=== PATIENT | female | born 1975 | race Caucasian/White ===

== ENCOUNTER 2020-06-20 23:10 | Emergency (ER) | payer SELFPAY ==
[~2020-06-20] VITALS: Ht 172.7 cm; Wt 101.9 kg
[2020-06-20] MEDS ORDERED: FAMOTIDINE 20 MG/2 ML VIAL IVP ONE (23:30)
[2020-06-20] MEDS ORDERED: IV NORMAL SALINE 1,000ML 1,000 ML IV ONE (23:30)
[2020-06-20] MEDS ORDERED: ONDANSETRON PF 4 MG/2 ML VIAL. IVP ONE (23:30)
[2020-06-20] MEDS ORDERED: ONDANSETRON PF 4 MG/2 ML VIAL. ONE (23:47)
[2020-06-20] MEDS ORDERED: FAMOTIDINE 20 MG/2 ML VIAL ONE (23:48)
--- NOTE | 2020-06-21 00:05 | RAD ---
INDICATION: Reason: abdominal pain, hernia / Spl. Instructions: / History: COMPARISON: None. TECHNIQUE: Axial CT images obtained through the abdomen and pelvis without contrast Limited assessment of solid organ structures and vasculature secondary to lack of intravenous contrast.. One or more of the following individualized dose reduction techniques were utilized for this examination: 1. Automated exposure control; 2. Adjustment of the mA and/or kV according to patient size; 3. Use of iterative reconstruction technique. FINDINGS: Mixed regions of lucency and groundglass opacity at lung bases. Abdominal aorta is nonaneurysmal. Postcholecystectomy changes. No intrahepatic bile duct dilation. Laxity of the anterior abdominal wall which could be postoperative in nature. Inferior vena cava filter. No peripancreatic fluid collection. Spleen unremarkable. Lobulated appearance of the bilateral kidneys with multiple nonobstructive stones. No hydronephrosis. Urinary bladder has minimal urine within the time of exam. Mild prominence of the wall. Appendix is not well seen. No dilated loops of bowel to suggest obstruction. Degenerative changes of the spine with some disc protrusions. IMPRESSION: * Multiple nonobstructive bilateral renal stones without hydronephrosis. * Urinary bladder is not very distended with some prominence of the wall. Likely secondary to lack of distention unless the patient is having symptoms of cystitis. * Mixed lucent and groundglass opacities at the lung bases which can be seen with air trapping and small airway inflammation. Electronically signed by: Hardeep Purdy MD (06/21/2020 12:03 AM) [id number]
--- NOTE | 2020-06-21 00:11 | PHYS DOC ---
Past History Past Medical History: Anxiety, Bipolar, CHF, DVT, GERD, Other Additional Past Medical Histor: PE, LUPUS, gastric ulcer Past Surgical History: Appendectomy, Cholecystectomy, , Hysterectomy, Tonsillectomy, Other Additional Past Surgical Histo: L KNEE, R HIP, gastric perforation repair Smoking: Cigarettes Alcohol Use: Rarely Drug Use: None General Adult EDM: Chief Complaint: ABDOMINAL PAIN HPI: HPI: 44-year-old female presents with report of abdominal pain at site of her known hernia which has become worse over the past several days. Patient with history of chronic pain for which she has been seen multiple times at [facility]. Patient does have a history of perforated gastric ulcer which required repair in March 2020. Patient reports she has had problems with abdominal wall hernia since. Patient was recently seen at [facility] a few days ago for similar without acute finding per [facility] review. Patient reportedly became angry when narcotic pain medication was not provided and left AGAINST MEDICAL ADVICE. Patient denies known sick contacts. Denies fever chills. Denies nausea or vomiting. Review of Systems: Review of Systems: Constitutional: Denies fever or chills Eyes: Denies redness or eye pain HENT: Denies nasal congestion or sore throat Respiratory: Denies cough or shortness of breath Cardiovascular: Denies chest pain or palpitations GI: Reports abdominal wall pain at site of known hernia : Denies dysuria or hematuria Musculoskeletal: Denies back pain or joint pain Integument: Denies rash or skin lesions Neurologic: Denies headache, focal weakness or sensory changes Complete systems were reviewed and found to be within normal limits, except as documented in this note. Current Medications: Current Meds: Current Medications Medications (Trade) Dose Ordered Sig/Jane Start Time Stop Time Status Last Admin Dose Admin Famotidine (Pepcid Vial) 20 mg 1X ONCE 06/20/20 23:30 06/20/20 23:31 UNV Ondansetron HCl (Zofran) 4 mg 1X ONCE 06/20/20 23:30 06/20/20 23:31 UNV Sodium Chloride 1,000 ml @ 1,000 mls/hr 1X ONCE 06/20/20 23:30 06/21/20 00:29 UNV Physical Exam: PE: Constitutional: Well developed, well nourished, uncomfortable, non-toxic appearance HENT: Normocephalic, atraumatic Eyes: Conjunctiva normal, no discharge Neck: Normal range of motion, supple Lungs & Thorax: No respiratory distress, equal chest rise and fall Abdomen: Soft, epigastric tenderness at site of a reducible abdominal wall herniation, no guarding/rebound tenderness Skin: Warm, dry, no erythema, no rash Extremities: No tenderness, ROM intact, no edema Neurologic: Alert and oriented X 3, no focal deficits noted Psychologic: Affect normal, judgment normal Current Patient Data: Vital Signs: Vital Signs Date Time Temp Pulse Resp B/P (MAP) Pulse Ox O2 Delivery O2 Flow Rate FiO2 06/20/20 23:24 97.8 104 18 137/118 (124) 98 Room Air EKG: EKG: [] Radiology/Procedures: Radiology/Procedures: PROCEDURE: CT ABDOMEN PELVIS WO CONTRAST INDICATION: Reason: abdominal pain, hernia / Spl. Instructions: / History: COMPARISON: None. TECHNIQUE: Axial CT images obtained through the abdomen and pelvis without contrast Limited assessment of solid organ structures and vasculature secondary to lack of intravenous contrast.. One or more of the following individualized dose reduction techniques were utilized for this examination: 1. Automated exposure control; 2. Adjustment of the mA and/or kV according to patient size; 3. Use of iterative reconstruction technique. FINDINGS: Mixed regions of lucency and groundglass opacity at lung bases. Abdominal aorta is nonaneurysmal. Postcholecystectomy changes. No intrahepatic bile duct dilation. Laxity of the anterior abdominal wall which could be postoperative in nature. Inferior vena cava filter. No peripancreatic fluid collection. Spleen unremarkable. Lobulated appearance of the bilateral kidneys with multiple nonobstructive stones. No hydronephrosis. Urinary bladder has minimal urine within the time of exam. Mild prominence of the wall. Appendix is not well seen. No dilated loops of bowel to suggest obstruction. Degenerative changes of the spine with some disc protrusions. IMPRESSION: * Multiple nonobstructive bilateral renal stones without hydronephrosis. * Urinary bladder is not very distended with some prominence of the wall. Likely secondary to lack of distention unless the patient is having symptoms of cystitis. * Mixed lucent and groundglass opacities at the lung bases which can be seen with air trapping and small airway inflammation. Electronically signed by: Hardeep Purdy MD (06/21/2020 12:03 AM) [id number] Course & Med Decision Making: Course & Med Decision Making Pertinent Labs and Imaging studies reviewed. (See chart for details) Patient with known chronic abdominal discomfort presents with abdominal wall pain at site of known herniation. Patient recently seen at [facility] with acute abdominal series and laboratory evaluation which was without acute process. Patient reports pain is worse than normal. Pain addressed. Labs obtained and posted to chart. CT abdomen/pelvis without finding of acute process. [facility] reviewed. Last Rx was [place] 5/325mg x 15 tabs from 06/13/20. Patient stable for discharge with outpatient follow-up with PCP/general surgery/pain management. Pain management referral provided. Discussed findings and plan with patient, who acknowledges understanding and agreement. Gideon Disclaimer: Draglinh Disclaimer: This electronic medical record was generated, in whole or in part, using a voice recognition dictation system. Departure Departure: Impression: Primary Impression: Chronic abdominal pain Additional Impression: Abdominal wall hernia Disposition: HOME/RESIDENCE PRIOR TO ADM Condition: STABLE Referrals: PCP,UNKNOWN (PCP) LOLLY VÁSQUEZ MD Patient Instructions: Abdominal Pain (Nonspecific), Chronic Pain, Hernia, [id number] Additional Instructions: Call Brian Cronin M.D (pain management) for further evaluation and treatment.. [address], [address] [place], [place] [address] Scripts Hydrocodone Bit/Acetaminophen (NORCO 5-325 TABLET) 1 Each Tablet 0.5-1 TAB PO Q6HRS PRN for PAIN, #6 TAB Prov: SIENNA WILKERSON DO 06/21/20 Justification of Admission: Justification of Admission: Justification of Admission Dx: N/A SIENNA WILKERSON DO Jun 21, 2020 00:11
[2020-06-21] MEDS ORDERED: MORPHINE SULFATE 4 MG/ML DISP.SYRIN. IV ONE (00:15)
[2020-06-21] MEDS ORDERED: MORPHINE SULFATE 4 MG/ML DISP.SYRIN. ONE (00:40)
[2020-06-21 01:04] LABS: BASO % 0 % (0-3); EOS # 0.5 x10^3/uL (0.0-0.7); EOS % 5 % (0-3); HEMATOCRIT 36.5 % (36.0-47.0); HEMOGLOBIN 12.1 g/dL (12.0-15.5); LYMPH # 3.3 x10^3/uL (1.0-4.8); LYMPH % 30 % (24-48); MEAN CORPUSCULAR HEMOGLOBIN 31 pg (25-35); MEAN CORPUSCULAR HGB CONC 33 g/dL (31-37); MEAN CORPUSCULAR VOLUME 92 fL (79-100); MONO # 0.7 x10^3/uL (0.0-1.1); MONO % 6 % (0-9); NEUT # 6.4 x10^3uL (1.8-7.7); NEUT % 59 % (31-73); PLATELET COUNT 568 x10^3/uL (140-400); RED BLOOD COUNT 3.97 x10^6/uL (3.50-5.40); RED CELL DISTRIBUTION WIDTH 16.8 % (11.5-14.5)
[2020-06-21 01:15] LABS: CALCIUM 9.5 mg/dL (8.5-10.1); GFR 60.2; POTASSIUM 3.8 mmol/L (3.5-5.1)
[2020-06-21 01:16] LABS: BACTERIA,URINE 0 /HPF (0-FEW); BILIRUBIN,URINE NEG (NEG); CLARITY,URINE CLEAR; COLOR,URINE YELLOW; GLUCOSE,URINE NEG (NEG); NITRITE,URINE NEG (NEG); RBC,URINE 0 /HPF (0-2); SQUAMOUS EPITHELIAL CELL,UR FEW /LPF; UROBILINOGEN,URINE 0.2 mg/dL (0.2 mg/dL)
[2020-06-21 01:21] LABS: ALBUMIN 3.7 g/dL (3.4-5.0); ALBUMIN/GLOBULIN RATIO 0.9 (1.0-1.7); MAGNESIUM 2.1 mg/dL (1.8-2.4); TOTAL BILIRUBIN 0.2 mg/dL (0.2-1.0)
[2020-06-21] MEDS ORDERED: HYDR-3165 PO (01:44)
[2020-06-21 02:00] VITALS: BP 101/70
== END 2020-06-21 02:00 | disposition home or self-care (01) ==
LOC: ER 23:10
DX: K43.9 Ventral hernia without obstruction or gangrene (principal); G89.29 Other chronic pain; R10.13 Epigastric pain; K21.9 Gastro-esophageal reflux disease without esophagitis; I50.9 Heart failure, unspecified; F17.210 Nicotine dependence, cigarettes, uncomplicated; Z86.718 Personal history of other venous thrombosis and embolism; Z90.49 Acquired absence of other specified parts of digestive tract; Z90.89 Acquired absence of other organs; Z98.890 Other specified postprocedural states; Z90.710 Acquired absence of both cervix and uterus
CPT/HCPCS: 36415; 74176; 80053; 81001; 83605; 83690; 83735; 85025; 85610; 85730; 96361; 96374; 96375; 99284; J2270; J2405; J3490; J7030; 99285-25

== ENCOUNTER 2020-07-03 17:20 | Emergency (ER) | payer SELFPAY ==
[~2020-07-03] VITALS: Ht 172.7 cm; Wt 103.0 kg
[~2020-07-03 17:20] MED LIST: HYDR-3165 PO
[2020-07-03] MEDS ORDERED: ONDANSETRON PF 4 MG/2 ML VIAL. IVP ONE (17:45)
[2020-07-03] MEDS ORDERED: MORPHINE SULFATE 4 MG/ML DISP.SYRIN. IV ONE ×2 (17:45→18:45)
[2020-07-03] MEDS ORDERED: IV NORMAL SALINE 1,000ML 1,000 ML IV ONE (17:45)
[2020-07-03] MEDS ORDERED: ONDANSETRON PF 4 MG/2 ML VIAL. ONE (17:51)
[2020-07-03] MEDS ORDERED: MORPHINE SULFATE 4 MG/ML DISP.SYRIN. ONE (17:52)
[2020-07-03 18:10] LABS: BASO # 0.1 x10^3/uL (0.0-0.2); BASO % 1 % (0-3); EOS # 0.4 x10^3/uL (0.0-0.7); EOS % 4 % (0-3); HEMATOCRIT 37.2 % (36.0-47.0); HEMOGLOBIN 12.7 g/dL (12.0-15.5); LYMPH # 3.1 x10^3/uL (1.0-4.8); LYMPH % 35 % (24-48); MEAN CORPUSCULAR HEMOGLOBIN 31 pg (25-35); MEAN CORPUSCULAR HGB CONC 34 g/dL (31-37); MEAN CORPUSCULAR VOLUME 91 fL (79-100); MONO # 0.7 x10^3/uL (0.0-1.1); MONO % 8 % (0-9); NEUT # 4.6 x10^3uL (1.8-7.7); NEUT % 52 % (31-73); PLATELET COUNT 551 x10^3/uL (140-400); RED BLOOD COUNT 4.11 x10^6/uL (3.50-5.40); RED CELL DISTRIBUTION WIDTH 15.6 % (11.5-14.5); WHITE BLOOD COUNT 8.9 x10^3/uL (4.0-11.0)
[2020-07-03 18:16] LABS: BILIRUBIN,URINE NEG (NEG); CLARITY,URINE HAZY; COLOR,URINE YELLOW; GLUCOSE,URINE NEG (NEG)
[2020-07-03 18:17] LABS: BACTERIA,URINE FEW /HPF (0-FEW); NITRITE,URINE NEG (NEG); RBC,URINE 0 /HPF (0-2); UROBILINOGEN,URINE 0.2 mg/dL (0.2 mg/dL)
--- NOTE | 2020-07-03 18:17 | RAD ---
CT Abdomen and Pelvis without contrast History: Abdominal pain, hernia Technique: Noncontrast CT imaging was performed of the abdomen and pelvis. Multiplanar images are reviewed. Exposure: One or more of the following individualized dose reduction techniques were utilized for this examination: 1. Automated exposure control 2. Adjustment of the mA and/or kV according to patient size 3. Use of iterative reconstruction technique. Comparison: June 20, 2020 Findings: There are again about 5 small left renal calculi with the largest about 2 to 3 mm. There are about 8 small right renal calculi with largest about 2 to 3 mm. There is no hydronephrosis of either kidney. No ureteral calculus is identified. There is again mosaic attenuation of the lung parenchyma at the visualized lung bases.Accurate evaluation of abdominal visceral organs is limited without intravenous contrast. There is no obvious abnormality of the spleen, liver, or pancreas. There is no adrenal nodularity. Accurate evaluation of bowel is limited without oral contrast. Bowel is not significantly dilated. It is difficult to exclude a degree of variable colonic wall thickening such as of the hepatic flexure and proximal transverse colon and also of the descending colon to mid sigmoid colon. There is no significant inflammatory type change about the bowel. Appendix is not confidently identified if still present. There are some nonspecific mesenteric nodes more numerous in the right lower quadrant as seen previously although not considered significantly enlarged, largest of these about 0.6 cm short axis dimension. There is again broad area ventral laxity of the fascia of the abdomen, segment of the transverse colon is posterior to the area of more shallow laxity. There is again inferior vena cava filter, again limb tips projecting beyond the inferior vena cava margins most notably of a limb coursing slightly posterior to the abdominal aorta and another adjacent limb tip near the right lateral surface of the abdominal aorta. Impression: 1. There are again small renal calculi, no hydronephrosis or ureteral calculus. 2. There is again inferior vena cava filter as stated, 2 of the limb tips near the abdominal aorta as described. 3. Accurate evaluation of bowel is limited without oral contrast, difficult to exclude some variable colonic wall thickening as stated as could be seen with mild colitis in the appropriate clinical setting. However there is no significant inflammatory type change about the bowel. Electronically signed by: Gareth Maciel MD (07/03/2020 6:14 PM) [facility]
[2020-07-03 18:19] LABS: CALCIUM 9.2 mg/dL (8.5-10.1); GFR 60.2; POTASSIUM 3.8 mmol/L (3.5-5.1)
[2020-07-03 18:24] LABS: TOTAL BILIRUBIN 0.2 mg/dL (0.2-1.0); TOTAL PROTEIN 8.2 g/dL (6.4-8.2)
--- NOTE | 2020-07-03 18:30 | PHYS DOC ---
Past History Past Medical History: CAD, CHF, COPD, High Cholesterol, MO, Other Additional Past Medical Histor: LUPUS Past Surgical History: Appendectomy, Cholecystectomy, , Hysterectomy, Other Additional Past Surgical Histo: L KNEE, R HIP, gastric perforation repair Smoking: Cigarettes Alcohol Use: Rarely Drug Use: None General Adult EDM: Chief Complaint: ABDOMINAL PAIN HPI: HPI: Patient is a 44-year-old female who presented to ER today for evaluation epigastric abdominal pain that is associated with nausea and vomiting off and on since March of this year. Patient had abdominal surgery done by Dr. Auguste at [place] in March due to perforated viscus. Since patient had ventral hernia from the incision site. Patient has had epigastric abdominal pain off and on since. Patient denies any fever, no diarrhea. Patient said it hurt when she take a deep breath or cough. Denies any exposure to anybody who tested positive for COVID-19 Review of Systems: Review of Systems: Constitutional: Denies fever or chills Eyes: Denies change in visual acuity HENT: Denies nasal congestion or sore throat Respiratory: Denies cough or shortness of breath Cardiovascular: Denies chest pain or edema GI: positive for abdominal pain, nausea, vomiting. no diarrhea : Denies dysuria Musculoskeletal: Denies back pain or joint pain Integument: Denies rash Neurologic: Denies headache, focal weakness or sensory changes Endocrine: Denies polyuria or polydipsia Lymphatic: Denies swollen glands Psychiatric: Denies depression or anxiety Heart Score: Risk Factors: Risk Factors: DM, Current or recent (<one month) smoker, HTN, HLP, family history of CAD, obesity. Risk Scores: Score 0 - 3: 2.5% MACE over next 6 weeks - Discharge Home Score 4 - 6: 20.3% MACE over next 6 weeks - Admit for Clinical Observation Score 7 - 10: 72.7% MACE over next 6 weeks - Early Invasive Strategies Current Medications: Current Meds: Current Medications Medications (Trade) Dose Ordered Sig/Jane Start Time Stop Time Status Last Admin Dose Admin Morphine Sulfate (Morphine 4mg Syringe) 4 mg STK-MED ONCE 07/03/20 17:52 07/03/20 17:52 DC Ondansetron HCl (Zofran) 4 mg STK-MED ONCE 07/03/20 17:51 07/03/20 17:52 DC Sodium Chloride 1,000 ml @ 1,000 mls/hr 1X ONCE 07/03/20 17:45 07/03/20 18:44 Allergies: Allergies: Allergies Coded Allergies Type Severity Reaction Last Updated Verified NSAIDS (Non-Steroidal Anti-Inflamma Allergy Unknown 07/03/20 Yes Penicillins Allergy Unknown 07/03/20 Yes cephalexin Allergy Unknown 07/03/20 Yes iodine Allergy Unknown 07/03/20 Yes nitrofurantoin Allergy Unknown 07/03/20 Yes prochlorperazine Allergy Unknown 07/03/20 Yes tramadol Allergy Unknown 07/03/20 Yes Physical Exam: PE: Constitutional: Well developed, well nourished, no acute distress, non-toxic appearance. [] HENT: Normocephalic, atraumatic, bilateral external ears normal, oropharynx moist, no oral exudates, nose normal. [] Eyes: PERRLA, EOMI, conjunctiva normal, no discharge. [] Neck: Normal range of motion, no tenderness, supple, no stridor. [] Cardiovascular:Heart rate regular rhythm, no murmur [] Lungs & Thorax: Bilateral breath sounds clear to auscultation [] Abdomen: Bowel sounds normal, soft, there is tenderness in epigastric area, no masses, no pulsatile masses. [] Skin: Warm, dry, no erythema, no rash. [] Back: No tenderness, no CVA tenderness. [] Extremities: No tenderness, no cyanosis, no clubbing, ROM intact, no edema. [] Neurologic: Alert and oriented X 3, normal motor function, normal sensory fu nction, no focal deficits noted. [] Psychologic: Affect normal, judgement normal, mood normal. [] Current Patient Data: Labs: Laboratory Tests Test 07/03/20 17:41 07/03/20 17:52 Urine Collection Type Unknown Urine Color Yellow Urine Clarity Hazy Urine pH 5.5 Urine Specific Brooks 1.025 Urine Protein Neg (NEG-TRACE) Urine Glucose (UA) Neg mg/dL (NEG) Urine Ketones (Stick) Neg mg/dL (NEG) Urine Blood Neg (NEG) Urine Nitrite Neg (NEG) Urine Bilirubin Neg (NEG) Urine Urobilinogen Dipstick 0.2 mg/dL (0.2 mg/dL) Urine Leukocyte Esterase Small (NEG) Urine RBC 0 /HPF (0-2) Urine WBC 11-20 /HPF (0-4) Urine Bacteria Few /HPF (0-FEW) White Blood Count 8.9 x10^3/uL (4.0-11.0) Red Blood Count 4.11 x10^6/uL (3.50-5.40) Hemoglobin 12.7 g/dL (12.0-15.5) Hematocrit 37.2 % (36.0-47.0) Mean Corpuscular Volume 91 fL (79-100) Mean Corpuscular Hemoglobin 31 pg (25-35) Mean Corpuscular Hemoglobin Concent 34 g/dL (31-37) Red Cell Distribution Width 15.6 % (11.5-14.5) H Platelet Count 551 x10^3/uL (140-400) H Neutrophils (%) (Auto) 52 % (31-73) Lymphocytes (%) (Auto) 35 % (24-48) Monocytes (%) (Auto) 8 % (0-9) Eosinophils (%) (Auto) 4 % (0-3) H Basophils (%) (Auto) 1 % (0-3) Neutrophils # (Auto) 4.6 x10^3uL (1.8-7.7) Lymphocytes # (Auto) 3.1 x10^3/uL (1.0-4.8) Monocytes # (Auto) 0.7 x10^3/uL (0.0-1.1) Eosinophils # (Auto) 0.4 x10^3/uL (0.0-0.7) Basophils # (Auto) 0.1 x10^3/uL (0.0-0.2) Sodium Level 138 mmol/L (136-145) Potassium Level 3.8 mmol/L (3.5-5.1) Chloride Level 102 mmol/L (98-107) Carbon Dioxide Level 21 mmol/L (21-32) Anion Gap 15 (6-14) H Blood Urea Nitrogen 17 mg/dL (7-20) Creatinine 1.0 mg/dL (0.6-1.0) Estimated GFR (Cockcroft-Gault) 60.2 BUN/Creatinine Ratio 17 (6-20) Glucose Level 102 mg/dL (70-99) H Calcium Level 9.2 mg/dL (8.5-10.1) Total Bilirubin 0.2 mg/dL (0.2-1.0) Aspartate Amino Transferase (AST) 8 U/L (15-37) L Alanine Aminotransferase (ALT) 18 U/L (14-59) Alkaline Phosphatase 91 U/L (46-116) Total Protein 8.2 g/dL (6.4-8.2) Albumin 4.0 g/dL (3.4-5.0) Albumin/Globulin Ratio 1.0 (1.0-1.7) Vital Signs: Vital Signs Date Time Temp Pulse Resp B/P (MAP) Pulse Ox O2 Delivery O2 Flow Rate FiO2 07/03/20 17:58 Room Air 07/03/20 17:32 97.1 116 18 140/106 (117) 98 EKG: EKG: [] Radiology/Procedures: Radiology/Procedures: [][place] [address] IMAGING REPORT Signed PATIENT: MANNY CARR SACCOUNT: [id number] : 1975 LOCATION: ER AGE: 44 SEX: F EXAM STATUS: REG ER ORD. PHYSICIAN: FILIBERTO MORALES DO REASON: abdominal pain, hernia PROCEDURE: CT ABDOMEN PELVIS WO CONTRAST CT Abdomen and Pelvis without contrast History: Abdominal pain, hernia Technique: Noncontrast CT imaging was performed of the abdomen and pelvis. Multiplanar images are reviewed. Exposure: One or more of the following individualized dose reduction techniques were utilized for this examination: 1. Automated exposure control 2. Adjustment of the mA and/or kV according to patient size 3. Use of iterative reconstruction technique. Comparison: June 20, 2020 Findings: There are again about 5 small left renal calculi with the largest about 2 to 3 mm. There are about 8 small right renal calculi with largest about 2 to 3 mm. There is no hydronephrosis of either kidney. No ureteral calculus is identified. There is again mosaic attenuation of the lung parenchyma at the visualized lung bases.Accurate evaluation of abdominal visceral organs is limited without intravenous contrast. There is no obvious abnormality of the spleen, liver, or pancreas. There is no adrenal nodularity. Accurate evaluation of bowel is limited without oral contrast. Bowel is not significantly dilated. It is difficult to exclude a degree of variable colonic wall thickening such as of the hepatic flexure and proximal transverse colon and also of the descending colon to mid sigmoid colon. There is no significant inflammatory type change about the bowel. Appendix is not confidently identified if still present. There are some nonspecific mesenteric nodes more numerous in the right lower quadrant as seen previously although not considered significantly enlarged, largest of these about 0.6 cm short axis dimension. There is again broad area ventral laxity of the fascia of the abdomen, segment of the transverse colon is posterior to the area of more shallow laxity. There is again inferior vena cava filter, again limb tips projecting beyond the inferior vena cava margins most notably of a limb coursing slightly posterior to the abdominal aorta and another adjacent limb tip near the right lateral surface of the abdominal aorta. Impression: 1. There are again small renal calculi, no hydronephrosis or ureteral calculus. 2. There is again inferior vena cava filter as stated, 2 of the limb tips near the abdominal aorta as described. 3. Accurate evaluation of bowel is limited without oral contrast, difficult to exclude some variable colonic wall thickening as stated as could be seen with mild colitis in the appropriate clinical setting. However there is no significant inflammatory type change about the bowel. Electronically signed by: Kenneth Loredo MD (07/03/2020 6:14 PM) [facility] DICTATED AND SIGNED BY: KENNETH LOREDO MD DATE: 07/03/201813 CC: FILIBERTO MORALES DO; PCP,UNKNOWN; GUALBERTO COHN DO ~ Course & Med Decision Making: Course & Med Decision Making Pertinent Labs and Imaging studies reviewed. (See chart for details) Patient is a 44-year-old female who was evaluated in the ER due to abdominal pain. Work-up did not find any acute problem. Patient will need to follow-up with the general surgeon who did her operation last March. Patient is amenable to plan of care Dragon Disclaimer: Dragon Disclaimer: This electronic medical record was generated, in whole or in part, using a voice recognition dictation system. Departure Departure: Impression: Primary Impression: Abdominal pain Disposition: 01 HOME/RESIDENCE PRIOR TO ADM Condition: IMPROVED Referrals: PCP,UNKNOWN (PCP) LOLLY AUGUSTE MD please call your general surgeon for follow up next week Patient Instructions: Abdominal Pain Additional Instructions: Thank you for visiting our Emergency Department. We appreciate you trusting us with your care. If any additional problems come up don't hesitate to return to visit us. Please follow up with your primary care provider so they can plan additional care if needed and know about the problem that you had. If symptoms worsen come back to the Emergency Department. Any concerning symptoms that start such as chest pain, shortness of air, weakness or numbness on one side of the body, running high fevers or any other concerning symptoms return to the ER. Justification of Admission: Justification of Admission: Justification of Admission Dx: N/A GUALBERTO COHN DO Jul 03, 2020 18:30
--- NOTE | 2020-07-03 19:13 | RAD ---
CHEST AP ONLY History: Chest pain with cough or breathing Comparison: None. Findings: Single view of the chest is submitted. There is no infiltrate, pneumothorax, or effusion. The pericardial cardiac silhouette is within normal limits in size. There is likely some right central perihilar bronchial wall thickening. Impression: 1. No infiltrate is identified by radiograph. There is right central perihilar bronchial wall thickening as could be seen with viral or atypical infectious etiologies or reactive airway disease. Electronically signed by: Gareth Maciel MD (07/03/2020 7:11 PM) [facility]
[2020-07-03 19:15] VITALS: BP 98/68
== END 2020-07-03 19:15 | disposition home or self-care (01) ==
LOC: ER 17:20
DX: R10.13 Epigastric pain (principal); R11.2 Nausea with vomiting, unspecified; I25.10 Atherosclerotic heart disease of native coronary artery without angina pectoris; I50.9 Heart failure, unspecified; J44.9 Chronic obstructive pulmonary disease, unspecified; E78.00 Pure hypercholesterolemia, unspecified; I25.2 Old myocardial infarction; F17.210 Nicotine dependence, cigarettes, uncomplicated; Z90.49 Acquired absence of other specified parts of digestive tract; Z90.89 Acquired absence of other organs; Z98.890 Other specified postprocedural states; Z90.710 Acquired absence of both cervix and uterus; Z88.6 Allergy status to analgesic agent; Z88.0 Allergy status to penicillin; Z88.1 Allergy status to other antibiotic agents; Z88.8 Allergy status to other drugs, medicaments and biological substances
CPT/HCPCS: 36415; 71045; 74176; 80053; 81001; 83605; 85025; 87086; 96374; 96375; 96376; 99285; J2270; J2405

== ENCOUNTER 2020-08-12 15:07 | Emergency (ER) | payer SELFPAY ==
[~2020-08-12] VITALS: Ht 172.7 cm; Wt 103.0 kg
[2020-08-12] MEDS ORDERED: IV NORMAL SALINE 1,000ML 1,000 ML IV ONE (16:15)
--- NOTE | 2020-08-12 16:31 | PHYS DOC ---
Past History Past Medical History: CAD, CHF, COPD, DVT, High Cholesterol, [place], P.U.D, Other Additional Past Medical Histor: LUPUS Past Medical History pulmonary embolism, ventral hernia Past Surgical History: Appendectomy, Cholecystectomy, , Hysterectomy, Other Additional Past Surgical Histo: L KNEE, R HIP, gastric perforation repair Smoking: Cigarettes Alcohol Use: Rarely Drug Use: None General Adult EDM: Chief Complaint: ABDOMINAL PAIN HPI: HPI: Patient is a 44-year-old female with a history of peptic ulcer rupture, COPD, CHF, lupus, and ventral hernia who presents with abdominal pain that started last night. Patient states that she was getting up out of her chair when she noticed mild abdominal pain in the area of her ventral hernia. The pain has worsened overnight. She is currently having mild nausea with no vomiting. She has had some dark-colored stools with no gross blood observed. Patient states she is being followed by Dr. Dela Cruz, general surgeon. She has taken Tylenol and Bentyl for the pain which have not helped with her symptoms. Any kind of movement makes the pain worse and nothing makes it better. The pain is midline and radiates to the right lower quadrant. Review of Systems: Review of Systems: Constitutional: Denies fever, chills, or body aches Eyes: Denies redness or eye pain HENT: Denies nasal congestion or sore throat Respiratory: Denies cough or shortness of breath Cardiovascular: Denies chest pain or palpitations GI: Denies vomiting, reports abdominal pain and nausea : Denies dysuria or hematuria Musculoskeletal: Denies back pain or joint pain Integument: Denies rash or skin lesions Neurologic: Denies headache, focal weakness or sensory changes Complete systems were reviewed and found to be within normal limits, except as documented in this note. Current Medications: Current Meds: Current Medications Medications (Trade) Dose Ordered Sig/Jane Start Time Stop Time Status Last Admin Dose Admin Sodium Chloride 1,000 ml @ 1,000 mls/hr 1X ONCE 08/12/20 16:15 08/12/20 17:14 Allergies: Allergies: Allergies Coded Allergies Type Severity Reaction Last Updated Verified NSAIDS (Non-Steroidal Anti-Inflamma Allergy Intermediate 07/15/20 Yes Penicillins Allergy Intermediate 07/15/20 Yes cephalexin Allergy Intermediate 07/15/20 Yes iodine Allergy Intermediate 07/15/20 Yes nitrofurantoin Allergy Intermediate 07/15/20 Yes prochlorperazine Allergy Intermediate 07/15/20 Yes tramadol Allergy Intermediate 07/15/20 Yes Physical Exam: PE: Constitutional: Well developed, well nourished, no acute distress, non-toxic ap pearance HENT: Normocephalic, atraumatic Eyes: PERRL, EOMI, conjunctiva normal, no discharge Neck: Normal range of motion, no tenderness, supple Lungs & Thorax: No respiratory distress, equal chest rise and fall Abdomen: Soft, tenderness to palpation of reducible ventral hernia with voluntary guarding, well-healed midline surgical incision scar, normal bowel sounds x4 Skin: Warm, dry, no erythema, no rash Back: No tenderness, no CVA tenderness Extremities: No tenderness, ROM intact, no edema Neurologic: Alert and oriented X 3, normal motor function, normal sensory function, no focal deficits noted Psychologic: Affect normal, judgment normal Course & Med Decision Making: Course & Med Decision Making Pertinent Labs studies reviewed. (See chart for details) Patient is a 44-year-old female who presents with abdominal pain that started last night. Patient states that she is currently being followed by Dr. Auguste with no plans for a hernia repair scheduled at this time. She is not currently on any prescription medications for her pain. Labs were drawn and her symptoms were addressed. Labs were within normal limits. Patient's ventral hernia was tender with palpation but reducible, which lowers my suspicion for an incarcerated hernia. Patient had a CT scan performed at a prior visit here in June, which was unremarkable. Risks of a repeat CT scan was discussed with the patient, who declined any imaging today. Patient has been told to follow up with Dr. Auguste for further evaluation regarding a possible hernia repair. Patient stable for discharge with outpatient follow-up with PCP/Dr. Auguste, general surgery. Discussed findings and plan with patient, who acknowledges understanding and agreement. Gideon Disclaimer: Gideon Disclaimer: This electronic medical record was generated, in whole or in part, using a voice recognition dictation system. Departure Departure: Impression: Primary Impression: Chronic abdominal pain Additional Impression: Ventral hernia Qualified Codes: K43.9 - Ventral hernia without obstruction or gangrene Disposition: HOME/RESIDENCE PRIOR TO ADM Condition: STABLE Referrals: PCP,HARDEEP (PCP) ANNA BARBER MD Patient Instructions: Abdominal Pain, [id number], Chronic Pain, Hernia, [id number] Scripts Hydrocodone Bit/Acetaminophen (NORCO 5-325 TABLET) 1 Each Tablet 0.5-1 TAB PO Q6HRS PRN for PAIN, #10 TAB Prov: SIENNA WILKERSON DO 08/12/20 SIENNA WILKERSON DO Aug 12, 2020 16:31
[2020-08-12] MEDS ORDERED: ONDANSETRON PF 4 MG/2 ML VIAL. ONE (17:05)
[2020-08-12] MEDS ORDERED: ONDANSETRON PF 4 MG/2 ML VIAL. IVP ONE (17:15)
[2020-08-12 17:27] LABS: BILIRUBIN,URINE NEG (NEG); CLARITY,URINE CLEAR; COLOR,URINE YELLOW; GLUCOSE,URINE NEG (NEG); NITRITE,URINE NEG (NEG); RBC,URINE 0 /HPF (0-2); UROBILINOGEN,URINE 0.2 mg/dL (0.2 mg/dL)
[2020-08-12 17:27] LABS: BASO % 0 % (0-3); EOS # 0.3 x10^3/uL (0.0-0.7); EOS % 4 % (0-3); HEMATOCRIT 36.4 % (36.0-47.0); LYMPH # 3.1 x10^3/uL (1.0-4.8); LYMPH % 39 % (24-48); MEAN CORPUSCULAR HEMOGLOBIN 31 pg (25-35); MEAN CORPUSCULAR HGB CONC 33 g/dL (31-37); MEAN CORPUSCULAR VOLUME 94 fL (79-100); MONO # 0.8 x10^3/uL (0.0-1.1); MONO % 9 % (0-9); NEUT # 3.8 x10^3uL (1.8-7.7); NEUT % 48 % (31-73); PLATELET COUNT 495 x10^3/uL (140-400); RED BLOOD COUNT 3.89 x10^6/uL (3.50-5.40); RED CELL DISTRIBUTION WIDTH 14.7 % (11.5-14.5)
[2020-08-12 17:28] LABS: BACTERIA,URINE 0 /HPF (0-FEW); SQUAMOUS EPITHELIAL CELL,UR OCC /LPF
[2020-08-12 17:40] LABS: CALCIUM 9.3 mg/dL (8.5-10.1); CREATININE 0.8 mg/dL (0.6-1.0); GFR 77.9
[2020-08-12 17:48] LABS: TOTAL BILIRUBIN 0.1 mg/dL (0.2-1.0); TOTAL PROTEIN 8.1 g/dL (6.4-8.2)
[2020-08-12] MEDS ORDERED: HYDR-3165 PO (17:54)
[2020-08-12 17:55] LABS: POTASSIUM 4.4 mmol/L (3.5-5.1)
[2020-08-12] MEDS ORDERED: HYDROcodone/APAP 5/325MG 1 TAB TABLET PO ONE (18:00)
[2020-08-12 18:26] VITALS: BP 93/65
== END 2020-08-12 18:34 | disposition home or self-care (01) ==
LOC: ER 15:07
DX: K43.9 Ventral hernia without obstruction or gangrene (principal); G89.29 Other chronic pain; R10.9 Unspecified abdominal pain; I25.10 Atherosclerotic heart disease of native coronary artery without angina pectoris; I50.9 Heart failure, unspecified; J44.9 Chronic obstructive pulmonary disease, unspecified; E78.00 Pure hypercholesterolemia, unspecified; I25.2 Old myocardial infarction; F17.210 Nicotine dependence, cigarettes, uncomplicated; Z86.718 Personal history of other venous thrombosis and embolism; Z87.11 Personal history of peptic ulcer disease; Z86.711 Personal history of pulmonary embolism; Z90.89 Acquired absence of other organs; Z90.49 Acquired absence of other specified parts of digestive tract; Z98.890 Other specified postprocedural states; Z90.710 Acquired absence of both cervix and uterus; Z88.0 Allergy status to penicillin; Z88.1 Allergy status to other antibiotic agents; Z88.8 Allergy status to other drugs, medicaments and biological substances
CPT/HCPCS: 36415; 80053; 81001; 83735; 85025; 96361; 96374; 96375; 99284; J2405; J3010; J7030

== ENCOUNTER 2020-09-04 19:15 | Emergency (ER) | payer SELFPAY ==
[~2020-09-04] VITALS: Ht 172.7 cm; Wt 106.0 kg
--- NOTE | 2020-09-04 19:24 | PHYS DOC ---
Past History Past Medical History: CAD, CHF, COPD, DVT, High Cholesterol, [place], P.U.D, Other Additional Past Medical Histor: LUPUS Past Surgical History: Appendectomy, Cholecystectomy, , Hysterectomy, Other Additional Past Surgical Histo: L KNEE, R HIP, gastric perforation repair Smoking: Cigarettes Alcohol Use: Rarely Drug Use: None General Adult EDM: Chief Complaint: ABDOMINAL PAIN HPI: HPI: ".. I had surgery.. on Monday for a hernia... at [facility].. but now I got a bump now at the top of surgery site that is sore.. ".. " They discharged me on ." Patient is a 44 year old female who presents with above hx and complaints development of a area of swelling and pain to the top of her incision from recent hernia repair at [facility]. Surgery was on Monday of this week by . Pt. was discharged home Monday. Patient denies any fever or chills. Patient denies any problems with eating, vomiting, or passage of gas or stool. Patient does have past medical history of lupus, CHF, COPD, DVT, pulmonary embolisms, perforated ulcers, C-sections x3, cholecystectomy, hysterectomy, midline hernia and appendectomy. Patient denies any recent travel outside the [place] area. Patient denies any specific ill contacts. Patient did have a normal stool today. Patient has been urinating without problems. Last ate pot roast and a coke at approximately 2200 hours. Patient complains of pain in the upper area of incision as 10 out of 10. The site is tender to palpitation is approximately 4 x 4 cm. Bedside ultrasound shows a collection of fluid in the subcu area, with no findings of bowel or hernia. Area is not warm to touch. There is no signs of obvious infection suture line. Patient denies any history of immunosuppression but does have a history of lupus. Patient has been taking Percocet for her discomfort. Patient does have follow-up with her surgeon this next week. Patient does continue to smoke cigarettes. Review of Systems: Review of Systems: Constitutional: Denies fever or chills Eyes: Denies change in visual acuity HENT: Denies nasal congestion or sore throat Respiratory: Denies cough or shortness of breath Cardiovascular: Denies chest pain or edema GI: Denies abdominal pain, nausea, vomiting, bloody stools or diarrhea . Complains of collection of fluid at top of abdomen surgery site that is painful. : Denies dysuria Musculoskeletal: Denies back pain or joint pain Integument: Denies rash Neurologic: Denies headache, focal weakness or sensory changes Endocrine: Denies polyuria or polydipsia Lymphatic: Denies swollen glands Psychiatric: Denies depression or anxiety Family History: Family History: Noncontributory to presentation Current Medications: Current Meds: See nursing for home meds Allergies: Allergies: Allergies Coded Allergies Type Severity Reaction Last Updated Verified NSAIDS (Non-Steroidal Anti-Inflamma Allergy Intermediate 07/15/20 Yes Penicillins Allergy Intermediate 07/15/20 Yes cephalexin Allergy Intermediate 07/15/20 Yes iodine Allergy Intermediate 07/15/20 Yes nitrofurantoin Allergy Intermediate 07/15/20 Yes prochlorperazine Allergy Intermediate 07/15/20 Yes tramadol Allergy Intermediate 07/15/20 Yes Physical Exam: PE: Constitutional: Well developed, well nourished, no acute distress, non-toxic appearance. [] HENT: Normocephalic, atraumatic, bilateral external ears normal, oropharynx moist, no oral exudates, nose normal. [] Eyes: PERRLA, EOMI, conjunctiva normal, no discharge. [] Neck: Normal range of motion, no tenderness, supple, no stridor. [] Cardiovascular:Heart rate regular rhythm, no murmur [] Lungs & Thorax: Bilateral breath sounds clear to auscultation [] Abdomen: Bowel sounds normal, soft, no tenderness, no masses, no pulsatile masses. [] Skin: Warm, dry, no erythema, no rash. [] Back: No tenderness, no CVA tenderness. [] Extremities: No tenderness, no cyanosis, no clubbing, ROM intact, no edema. [] Neurologic: Alert and oriented X 3, normal motor function, normal sensory function, no focal deficits noted. [] Psychologic: Affect normal, judgement normal, mood normal. [] EKG: EKG: [] Radiology/Procedures: Radiology/Procedures: [] Heart Score: Risk Factors: Risk Factors: DM, Current or recent (<one month) smoker, HTN, HLP, family history of CAD, obesity. Risk Scores: Score 0 - 3: 2.5% MACE over next 6 weeks - Discharge Home Score 4 - 6: 20.3% MACE over next 6 weeks - Admit for Clinical Observation Score 7 - 10: 72.7% MACE over next 6 weeks - Early Invasive Strategies Course & Med Decision Making: Course & Med Decision Making Pertinent Labs and Imaging studies reviewed. (See chart for details) Pt. refused sterile aspiration of cyst or seroma at top of incision site. Patient to follow-up with her surgeon as scheduled and call for an earlier appointment if possible. Patient remain on a clear fluid diet if continued pain. Must present to [facility] for continuity of care if continued abdomen pain so she can be evaluated by her surgeon. Impression: 1. Hx. of recent small bowel incarcerated hernia status post surgery on August 31 2. Small seroma at top of the incision line 3. Hx. of Chronic Pain [] Dragon Disclaimer: Dragon Disclaimer: This electronic medical record was generated, in whole or in part, using a voice recognition dictation system. Departure Departure: Disposition: 01 DC HOME SELF CARE/HOMELESS Condition: STABLE Referrals: PCP,NO (PCP) NATY MAURER MD Sep 04, 2020 19:24
[2020-09-04] MEDS ORDERED: MORPHINE SULFATE 10 MG/ML SYRINGE. SQ ONE (20:00)
[2020-09-04 20:50] VITALS: BP 148/82
[2020-09-05] MEDS ORDERED: HYDR-3165 PO (13:11)
== END 2020-09-04 20:56 | disposition home or self-care (01) ==
LOC: ER 19:15
DX: K46.0 Unspecified abdominal hernia with obstruction, without gangrene (principal); G89.29 Other chronic pain; L76.34 Postprocedural seroma of skin and subcutaneous tissue following other procedure; R10.9 Unspecified abdominal pain; R60.0 Localized edema; J44.9 Chronic obstructive pulmonary disease, unspecified; E78.00 Pure hypercholesterolemia, unspecified; I50.9 Heart failure, unspecified; I25.2 Old myocardial infarction; F17.210 Nicotine dependence, cigarettes, uncomplicated; Z90.710 Acquired absence of both cervix and uterus; Z90.89 Acquired absence of other organs; Z90.49 Acquired absence of other specified parts of digestive tract; Z98.890 Other specified postprocedural states; Z88.0 Allergy status to penicillin; Z88.1 Allergy status to other antibiotic agents; Z91.041 Radiographic dye allergy status; Z88.8 Allergy status to other drugs, medicaments and biological substances
CPT/HCPCS: 96372; 99283; J2270

== ENCOUNTER 2020-09-05 12:19 | Emergency (ER) | payer SELFPAY ==
[~2020-09-05] VITALS: Ht 172.7 cm; Wt 106.0 kg
[2020-09-05 12:19] VITALS: BP 139/76
[2020-09-05] MEDS ORDERED: HYDR-3165 PO (13:11)
--- NOTE | 2020-09-05 13:13 | PHYS DOC ---
Past History Past Medical History: CHF, COPD, DVT, P.U.D, Other Additional Past Medical Histor: Lupus, PE Past Surgical History: Appendectomy, Cholecystectomy, , Hysterectomy, Other Additional Past Surgical Histo: hernia repair, rep of perf ulcer Smoking: Cigarettes Alcohol Use: None Drug Use: None Adult General Chief Complaint Chief Complaint: MEDICATION REFILL HPI HPI Patient is a 44 year old female who presents with uncontrolled pain to the top of her incision from recent hernia repair at [facility]. Surgery was on Monday of this week by . Pt. was discharged home Monday. Patient denies any fever or chills. Patient denies any problems with eating, vomiting, or passage of gas or stool. Patient does have past medical history of lupus, C HF, COPD, DVT, pulmonary embolisms, perforated ulcers, C-sections x3, cholecystectomy, hysterectomy, midline hernia and appendectomy. Patient denies any recent travel outside the [place] area. Patient seen at our facility in past 24 hours without any significant change in presentation. She attempted to contact her surgeon who reports not being able to prescribe any medications for her until Monday of the upcoming week and was advised to present to local ED for evaluation and pain control Review of Systems Review of Systems Fourteen body systems of review of systems have been reviewed. See HPI for pertinent positives and negative responses, other mittal all other systems are negative, non-pertinent or non-contributory Allergies Allergies Allergies Coded Allergies Type Severity Reaction Last Updated Verified NSAIDS (Non-Steroidal Anti-Inflamma Allergy Intermediate 09/05/20 Yes Penicillins Allergy Intermediate 09/05/20 Yes cephalexin Allergy Intermediate 09/05/20 Yes iodine Allergy Intermediate 09/05/20 Yes nitrofurantoin Allergy Intermediate 09/05/20 Yes prochlorperazine Allergy Intermediate 09/05/20 Yes tramadol Allergy Intermediate 09/05/20 Yes Physical Exam Physical Exam Constitutional: Well developed, well nourished, no acute distress, non-toxic appearance. [] HENT: Normocephalic, atraumatic, bilateral external ears normal, oropharynx moist, no oral exudates, nose normal. [] Eyes: PERRLA, EOMI, conjunctiva normal, no discharge. [] Neck: Normal range of motion, no tenderness, supple, no stridor. [] Cardiovascular:Heart rate regular rhythm, no murmur [] Lungs & Thorax: Bilateral breath sounds clear to auscultation [] Abdomen: Bowel sounds normal, soft, tenderness present over well appearing midline incision from recent surgery without any concern for any active infection, no redness and/or streaking, mild amount of fluctuant collection underneath suture lines without any expressible fluid and/or puss, no masses, no pulsatile masses. Non-surgical abdomen, no peritoneal signs [] Skin: Warm, dry, no erythema, no rash. [] Back: No tenderness, no CVA tenderness. [] Extremities: No tenderness, no cyanosis, no clubbing, ROM intact, no edema. [] Neurologic: Alert and oriented X 3, normal motor function, normal sensory function, no focal deficits noted. [] Psychologic: Affect normal, judgement normal, mood normal. [] Current Patient Data Vital Signs Vital Signs Date Time Temp Pulse Resp B/P (MAP) Pulse Ox O2 Delivery O2 Flow Rate FiO2 09/05/20 12:19 98.6 91 24 139/76 (97) 98 Room Air EKG EKG [] Radiology/Procedures Radiology/Procedures [] Heart Score Risk Factors: Risk Factors: DM, Current or recent (<one month) smoker, HTN, HLP, family history of CAD, obesity. Risk Scores: Risk Factors: DM, Current or recent (<one month) smoker, HTN, HLP, family history of CAD, obesity. Course & Med Decision Making Course & Med Decision Making Pertinent Labs and Imaging studies reviewed. (See chart for details) Discussed most likely diagnosis of uncontrolled post-op pain without any concerning emergent and/or surgical findings I gave x1 Minerv[place] 5 while in ED with extremely limited prescription to tide patient over until she can be seen by surgeion in <48 hours. Patient's prescribing history suspect, I discussed this with her regarding potential drug-seeking behavior. She is high-risk for opioid dependence etc Strict return precautions discussed with good understanding by patients, all questions and concerns addressed prior to ED departure in stable condition Dragon Disclaimer Dragon Disclaimer This electronic medical record was generated, in whole or in part, using a voice recognition dictation system. Departure Departure: Impression: Primary Impression: Post-operative pain Disposition: 01 DC HOME SELF CARE/HOMELESS Condition: STABLE Referrals: PCP,NO (PCP) Additional Instructions: As discussed explicitly prior to ER departure, you must call your surgeon first thing Monday morning to address this pain. You are high risk for overdose with recent amount of narcotics and drug-seeking behavior elicited. Please discuss this uncontrolled pain with your physician in the absence of any other postoperative surgical and/or emergent findings Scripts Hydrocodone Bit/Acetaminophen (NORCO 5-325 TABLET) 1 Each Tablet 1 TAB PO PRN Q6HRS PRN for PAIN for 9 Days, TAB 0 Refills Prov: CHETAN AVALOS DO 09/05/20 CHETAN AVALOS DO Sep 05, 2020 13:13
[2020-09-05] MEDS ORDERED: HYDROcodone/APAP 5/325MG 1 TAB TABLET PO ONE (13:15)
== END 2020-09-05 13:22 | disposition home or self-care (01) ==
LOC: ER 12:19
DX: G89.18 Other acute postprocedural pain (principal); J44.9 Chronic obstructive pulmonary disease, unspecified; I50.9 Heart failure, unspecified; F17.210 Nicotine dependence, cigarettes, uncomplicated; Z90.89 Acquired absence of other organs; Z90.49 Acquired absence of other specified parts of digestive tract; Z98.890 Other specified postprocedural states; Z90.710 Acquired absence of both cervix and uterus; Z86.718 Personal history of other venous thrombosis and embolism; Z88.0 Allergy status to penicillin; Z88.1 Allergy status to other antibiotic agents; Z91.041 Radiographic dye allergy status; Z88.8 Allergy status to other drugs, medicaments and biological substances; Z88.6 Allergy status to analgesic agent
CPT/HCPCS: 99283

== ENCOUNTER 2020-09-19 23:19 | Emergency (ER) | payer SELFPAY ==
[~2020-09-19] VITALS: Ht 172.7 cm; Wt 103.9 kg
[2020-09-19 23:35] VITALS: BP 134/94
--- NOTE | 2020-09-19 23:53 | PHYS DOC ---
Past History Past Medical History: CHF, COPD, DVT, P.U.D, Other Additional Past Medical Histor: Lupus, PE Past Surgical History: Appendectomy, Cholecystectomy, , Hysterectomy, Other Additional Past Surgical Histo: hernia repair, rep of perf ulcer Smoking: Cigarettes Alcohol Use: None Drug Use: None General Adult EDM: Chief Complaint: ABDOMINAL PAIN HPI: HPI: 45-year-old female presents with concern for disruption of her ventral hernia repair. She had surgery 2 weeks ago. The patient yesterday at home. She fell onto the concrete stair. She believes she hit her right knee and abdomen on the last step. She continues to have pain today. She has a known seroma at the top of the incision. She is just concerned she may have disrupted the repair. It is most tender just to the left of the incision. The incision itself has not opened. Patient denies fever or chills. She has some bruising of the right knee, but is able to walk without significant difficulty. Review of Systems: Review of Systems: Constitutional: Denies fever or chills Eyes: Denies change in visual acuity HENT: Denies nasal congestion or sore throat Respiratory: Denies cough or shortness of breath Cardiovascular: Denies chest pain or edema GI: Left-sided abdominal pain. Denies nausea, vomiting, bloody stools or diarrhea : Denies dysuria Musculoskeletal: Denies back pain or joint pain Integument: Denies rash Neurologic: Denies headache, focal weakness or sensory changes Endocrine: Denies polyuria or polydipsia Lymphatic: Denies swollen glands Psychiatric: Denies depression or anxiety Allergies: Allergies: Allergies Coded Allergies Type Severity Reaction Last Updated Verified NSAIDS (Non-Steroidal Anti-Inflamma Allergy Intermediate 09/05/20 Yes Penicillins Allergy Intermediate 09/05/20 Yes cephalexin Allergy Intermediate 09/05/20 Yes iodine Allergy Intermediate 09/05/20 Yes nitrofurantoin Allergy Intermediate 09/05/20 Yes prochlorperazine Allergy Intermediate 09/05/20 Yes tramadol Allergy Intermediate 09/05/20 Yes Physical Exam: PE: Constitutional: Well developed, well nourished, no acute distress, non-toxic appearance. [] HENT: Normocephalic, atraumatic, bilateral external ears normal, oropharynx moist, no oral exudates, nose normal. [] Eyes: PERRLA, EOMI, conjunctiva normal, no discharge. [] Neck: Normal range of motion, no tenderness, supple, no stridor. [] Cardiovascular: Heart rate regular rhythm, no murmur [] Lungs & Thorax: Bilateral breath sounds clear to auscultation [] Abdomen: Bowel sounds normal, soft, tenderness left of the incision, 4 cm round mass at the superior aspect of the incision, no pulsatile masses. [] Skin: Warm, dry, no erythema, no rash. Incisions are healing as expected. [] Back: No tenderness, no CVA tenderness. [] Extremities: No tenderness, no cyanosis, no clubbing, ROM intact, no edema. [] Neurologic: Alert and oriented X 3, normal motor function, normal sensory function, no focal deficits noted. [] Psychologic: Affect normal, judgement normal, mood normal. [] Current Patient Data: Vital Signs: Vital Signs Date Time Temp Pulse Resp B/P (MAP) Pulse Ox O2 Delivery O2 Flow Rate FiO2 09/19/20 23:35 98.2 99 18 134/94 (107) 98 Room Air EKG: EKG: [] Radiology/Procedures: Radiology/Procedures: [] Impressions: Abdominal and Pelvis CT, Without Contrast: History: Reason: recent hernia surgery, evaluate for disruption of repair / Spl. Instructions: FELL 2 DAYS AGO. / History: Comparison: None. Procedure: Axial images are obtained of the abdomen and pelvis, without IV or oral contrast. Oral Contrast: No Findings: Evaluation of solid organs is limited without contrast. There has been prior cholecystectomy. The appendix is not well seen. There is an IVC filter in place. There is a large fat-containing periumbilical hernia containing small amount of air containing fluid. There is a trace of free fluid in the pelvis. Liver: Normal. Spleen: Normal. Pancreas: Normal. Adrenal Glands: Normal. Kidneys: There are numerous nonobstructive stones the renal pelvises bilaterally. There is no free air. There is no lymphadenopathy. The urinary bladder appears normal. There is no pericolonic inflammation identified. Impression: 1. Large periumbilical hernia with a small amount of air and a 4.5 cm fluid collection likely a seroma. 2. Urolithiasis. 3. Trace of free fluid in the pelvis. End impression PQRS Compliance Statement: One or more of the following individualized dose reduction techniques were utilized for this examination: 1. Automated exposure control 2. Adjustment of the mA and/or kV according to patient size 3. Use of iterative reconstruction technique Electronically signed by: Melody Alfonso III, MD (09/20/2020 12:13 AM) [facility] DICTATED AND SIGNED BY: MELODY ALFONSO III, MD DATE: 09/20/20 0013 CC: FILIBERTO MORALES DO; PCP,NO ~ Heart Score: Risk Factors: Risk Factors: DM, Current or recent (<one month) smoker, HTN, HLP, family hi story of CAD, obesity. Risk Scores: Score 0 - 3: 2.5% MACE over next 6 weeks - Discharge Home Score 4 - 6: 20.3% MACE over next 6 weeks - Admit for Clinical Observation Score 7 - 10: 72.7% MACE over next 6 weeks - Early Invasive Strategies Course & Med Decision Making: Course & Med Decision Making Pertinent Labs and Imaging studies reviewed. (See chart for details) . The patient 4 mg of Zofran ODT and a 7.[address] scan does show a ventral hernia containing fat and a seroma. See official read for more details. There does not appear to be any new disruption to the area. The patient is stable for discharge at this time. The patient has been on pain medication for many months. She does not appear to tolerate pain very well. I will discharge her with a short course of [place] 5/325 for his pain. She is s cheduled to see her surgeon on Monday. Call the office Monday morning. [] Gideon Disclaimer: Gideon Disclaimer: This electronic medical record was generated, in whole or in part, using a voice recognition dictation system. Departure Departure: Impression: Primary Impression: Fall on concrete Additional Impressions: Abdominal pain Qualified Codes: R10.33 - Periumbilical pain Seroma after procedure Disposition: 01 DC HOME SELF CARE/HOMELESS Condition: STABLE Referrals: PCP,HARDEEP (PCP) Patient Instructions: Contusion, [id number] Scripts Hydrocodone Bit/Acetaminophen (NORCO 5-325 TABLET) 1 Each Tablet 1 TAB PO PRN Q6HRS PRN for PAIN, #10 TAB 0 Refills Prov: FILIBERTO MORALES DO 09/20/20 FILIBERTO MORALES DO Sep 19, 2020 23:53
[2020-09-20] MEDS ORDERED: ONDANSETRON ODT 4 MG TAB.RAPDIS PO ONE
[2020-09-20] MEDS ORDERED: HYDROcodone/APAP 7.5/325MG 1 TAB TABLET PO ONE
--- NOTE | 2020-09-20 00:17 | RAD ---
Abdominal and Pelvis CT, Without Contrast: History: Reason: recent hernia surgery, evaluate for disruption of repair / Spl. Instructions: FELL 2 DAYS AGO. / History: Comparison: None. Procedure: Axial images are obtained of the abdomen and pelvis, without IV or oral contrast. Oral Contrast: No Findings: Evaluation of solid organs is limited without contrast. There has been prior cholecystectomy. The appendix is not well seen. There is an IVC filter in place. There is a large fat-containing periumbilical hernia containing small amount of air containing fluid. There is a trace of free fluid in the pelvis. Liver: Normal. Spleen: Normal. Pancreas: Normal. Adrenal Glands: Normal. Kidneys: There are numerous nonobstructive stones the renal pelvises bilaterally. There is no free air. There is no lymphadenopathy. The urinary bladder appears normal. There is no pericolonic inflammation identified. Impression: 1. Large periumbilical hernia with a small amount of air and a 4.5 cm fluid collection likely a seroma. 2. Urolithiasis. 3. Trace of free fluid in the pelvis. End impression PQRS Compliance Statement: One or more of the following individualized dose reduction techniques were utilized for this examination: 1. Automated exposure control 2. Adjustment of the mA and/or kV according to patient size 3. Use of iterative reconstruction technique Electronically signed by: Je Alfonso III, MD (09/20/2020 12:13 AM) [facility]
[2020-09-20] MEDS ORDERED: HYDR-3165 PO (00:28)
== END 2020-09-20 00:30 | disposition home or self-care (01) ==
LOC: ER 23:19
DX: G89.11 Acute pain due to trauma (principal); R10.33 Periumbilical pain; L76.34 Postprocedural seroma of skin and subcutaneous tissue following other procedure; J44.9 Chronic obstructive pulmonary disease, unspecified; I50.9 Heart failure, unspecified; F17.210 Nicotine dependence, cigarettes, uncomplicated; Z86.718 Personal history of other venous thrombosis and embolism; Z90.710 Acquired absence of both cervix and uterus; Z90.89 Acquired absence of other organs; Z98.890 Other specified postprocedural states; Z90.49 Acquired absence of other specified parts of digestive tract; Z88.0 Allergy status to penicillin; Z88.1 Allergy status to other antibiotic agents; Z91.041 Radiographic dye allergy status; Z88.8 Allergy status to other drugs, medicaments and biological substances; W18.39XA Other fall on same level, initial encounter; Y93.89 Activity, other specified; Y92.89 Other specified places as the place of occurrence of the external cause; Y99.8 Other external cause status
CPT/HCPCS: 74176; 99284; Q0162

== ENCOUNTER 2020-09-27 00:58 | Emergency (ER) | payer SELFPAY ==
[~2020-09-27] VITALS: Ht 172.7 cm; Wt 103.9 kg
[2020-09-27 01:05] VITALS: BP 150/98
--- NOTE | 2020-09-27 01:35 | PHYS DOC ---
Past History Past Medical History: CHF, COPD, DVT, P.U.D, Other Additional Past Medical Histor: Lupus, PE Past Surgical History: Appendectomy, Cholecystectomy, , Hysterectomy, Other Additional Past Surgical Histo: hernia repair, rep of perf ulcer Smoking: Cigarettes Alcohol Use: None Drug Use: None Adult General Chief Complaint Chief Complaint: OTHER COMPLAINTS HPI HPI Patient is a 45-year-old female who presents for abdominal drain issues. Has history of recent abdominal surgery and subsequent seroma, had a drain placed 2 days ago with plans for outpatient surgery follow-up tomorrow morning for evaluation and subsequent drain removal. Patient reports ongoing pain for which she has taken leftover [place] 5 4 without significant relief and wondering what she can do for pain control. In addition, patient reports " snagging" drain and concerned it was dislodged prompting her to call her surgeon, she was subsequently referred to our ER for evaluation. Review of Systems Review of Systems Fourteen body systems of review of systems have been reviewed. See HPI for pertinent positives and negative responses, other mittal all other systems are negative, non-pertinent or non-contributory Allergies Allergies Allergies Coded Allergies Type Severity Reaction Last Updated Verified NSAIDS (Non-Steroidal Anti-Inflamma Allergy Intermediate 09/05/20 Yes Penicillins Allergy Intermediate 09/05/20 Yes cephalexin Allergy Intermediate 09/05/20 Yes iodine Allergy Intermediate 09/05/20 Yes nitrofurantoin Allergy Intermediate 09/05/20 Yes prochlorperazine Allergy Intermediate 09/05/20 Yes tramadol Allergy Intermediate 09/05/20 Yes Physical Exam Physical Exam Constitutional: Well developed, well nourished, no acute distress, non-toxic appearance. HENT: Normocephalic, atraumatic, bilateral external ears normal, oropharynx moist, no oral exudates, nose normal. Eyes: PERRLA, EOMI, conjunctiva normal, no discharge. Neck: Normal range of motion, no tenderness, supple, no stridor. Cardiovascular: Heart rate regular, sinus rhythm, no murmurs rubs or gallops Lungs & Thorax: Bilateral breath sounds clear to auscultation Abdomen: Bowel sounds normal, soft, no masses, no pulsatile masses. Nonsurgical abdomen, no peritoneal signs. Well-appearing drain in central abdomen left of midline that is well place with sutures intact, drain is patent with continued sanguinous fluid present which is consistent with drainage since its inception 48 hours ago. No obvious signs of dislodgment or infection Skin: Warm, dry, no erythema, no rash. Back: No tenderness, no CVA tenderness. Extremities: No tenderness, no cyanosis, no clubbing, ROM intact, no edema. Neurologic: Alert and oriented X 3, grossly normal motor & sensory function, no focal deficits noted. Psychologic: Affect normal, judgement normal, anxious mood Current Patient Data Vital Signs Vital Signs Date Time Temp Pulse Resp B/P (MAP) Pulse Ox O2 Delivery O2 Flow Rate FiO2 09/27/20 01:05 98.5 98 18 150/98 (115) 100 Room Air EKG EKG [] Radiology/Procedures Radiology/Procedures [] Heart Score Risk Factors: Risk Factors: DM, Current or recent (<one month) smoker, HTN, HLP, family history of CAD, obesity. Risk Scores: Risk Factors: DM, Current or recent (<one month) smoker, HTN, HLP, family history of CAD, obesity. Course & Med Decision Making Course & Med Decision Making ABCs unremarkable, patient well-appearing and hemodynamically stable. Cyst well positioned without any signs of emergent and/or surgical pathology requiring further ER work-up and/or intervention. I advised patient to continue Tylenol use as needed for pain. I also advised her to keep outpatient follow-up with her surgeon tomorrow for drain removal. Strict return precautions were discussed with good understanding by patient. All questions and concerns addressed prior to ER departure in stable condition Dragon Disclaimer Dragon Disclaimer This electronic medical record was generated, in whole or in part, using a voice recognition dictation system. Departure Departure: Impression: Primary Impression: Abdominal wall seroma Disposition: 01 DC HOME SELF CARE/HOMELESS Condition: STABLE Referrals: PCP,NO (PCP) Additional Instructions: You have been evaluated in the Emergency Department today for abdominal pain. Your evaluation was not suggestive of any emergent condition requiring medical intervention at this time. However, some abdominal problems make take more time to appear. Therefore, it is important for you to watch for any new symptoms or worsening of your current condition. Please keep your follow-up with your surgeon tomorrow for drain removal as previously scheduled Return to the Emergency Department if you experience worsening pain, persistent fevers greater than 100.4, recurrent vomiting, blood in vomit, blood in stool, dark tarry stool, chest pain, difficulty breathing, or any other concerning symptoms. CHETAN AVALOS DO Sep 27, 2020 01:35
== END 2020-09-27 01:37 | disposition home or self-care (01) ==
LOC: ER 00:58
DX: K91.872 Postprocedural seroma of a digestive system organ or structure following a digestive system procedure (principal); J44.9 Chronic obstructive pulmonary disease, unspecified; I50.9 Heart failure, unspecified; F17.210 Nicotine dependence, cigarettes, uncomplicated; Z86.718 Personal history of other venous thrombosis and embolism; Z87.11 Personal history of peptic ulcer disease; Z90.49 Acquired absence of other specified parts of digestive tract; Z90.89 Acquired absence of other organs; Z98.890 Other specified postprocedural states; Z90.710 Acquired absence of both cervix and uterus; Z88.6 Allergy status to analgesic agent; Z88.1 Allergy status to other antibiotic agents; Z88.8 Allergy status to other drugs, medicaments and biological substances
CPT/HCPCS: 99282

== ENCOUNTER 2020-10-03 14:36 | Emergency (ER) | payer SELFPAY ==
[~2020-10-03] VITALS: Ht 172.7 cm; Wt 103.9 kg
[2020-10-03] MEDS ORDERED: ONDANSETRON PF 4 MG/2 ML VIAL. IVP ONE (15:00)
[2020-10-03 15:05] VITALS: BP 161/98
--- NOTE | 2020-10-03 15:37 | RAD ---
EXAM: CT Abdomen and Pelvis without IV contrast INDICATION: Reason: midline hernia pain concerned for strangulation / Spl. Instructions: / History: TECHNIQUE: Multi-detector row CT images were acquired from the lung bases through the abdomen and pelvis without the use of IV contrast. Sagittal and coronal images were acquired from the transaxial data. All CT scans performed at this facility utilize dose optimization techniques as appropriate to the exam, including the following: Automated exposure control and adjustment of the mA and/or KV according to patient size (this includes techniques or standardized protocols for targeted exams where dose is indication/reason for exam). ORAL CONTRAST: None COMPARISON: Noncontrast abdomen pelvis CT of 09/19/2020 FINDINGS: The absence of IV contrast limits evaluation of soft tissue pathology. LOWER CHEST: Unremarkable LIVER: Unremarkable BILIARY SYSTEM: Gallbladder is surgically absent. Bile ducts are not dilated. PANCREAS: Unremarkable SPLEEN: Unremarkable ADRENALS: Unremarkable KIDNEYS & URETERS: Nonobstructive bilateral nephrolithiasis. BLADDER: Unremarkable REPRODUCTIVE ORGANS: Hysterectomy. GASTROINTESTINAL: The stomach, small bowel, and colon are unremarkable. The appendix is normal. MESENTERY/PERITONEUM/RETROPERITONEUM: Unremarkable VASCULAR: Stable IVC filter. LYMPH NODES: No adenopathy OSSEOUS & SOFT TISSUES: No acute osseous findings. Ventral abdominal hernia is redemonstrated near the midline with interval decrease in size of the fat and fluid components. There remains however a fluid component measuring 2.2 x 1.7 x 2.9 cm in transverse by AP by craniocaudal dimensions that is associated with mild surrounding soft tissue stranding. The tiny punctate focus of gas in the fluid collection which was previously evident has since resolved. IMPRESSION: Decreased but not resolution in patient's ventral abdominal wall hernia containing fat and fluid as described. Surrounding soft tissue stranding is present and could reflect changes of incarceration. No obvious bowel involvement. Electronically signed by: Siobhan Morris MD (10/03/2020 3:34 PM) [id number]
[2020-10-03] MEDS ORDERED: ONDANSETRON ODT 4 MG TAB.RAPDIS ONE (15:39)
--- NOTE | 2020-10-03 15:58 | PHYS DOC ---
Past History Past Medical History: CHF, COPD, DVT, P.U.D, Other Additional Past Medical Histor: Lupus, PE Past Surgical History: Appendectomy, Cholecystectomy, , Hysterectomy, Other Additional Past Surgical Histo: hernia repair, rep of perf ulcer Smoking: Cigarettes Alcohol Use: None Drug Use: None Adult General Chief Complaint Chief Complaint: ABDOMINAL PAIN HPI HPI Patient is a [age] year old [sex] who presents with [] Review of Systems Review of Systems Fourteen body systems of review of systems have been reviewed. See HPI for pertinent positives and negative responses, other mittal all other systems are negative, non-pertinent or non-contributory Current Medications Current Medications Current Medications Medications (Trade) Dose Ordered Sig/Jane Start Time Stop Time Status Last Admin Dose Admin Ondansetron HCl (Zofran Odt) 4 mg STK-MED ONCE 10/03/20 15:39 10/03/20 15:40 DC Ondansetron HCl (Zofran) 4 mg 1X ONCE 10/03/20 15:00 10/03/20 15:01 DC Allergies Allergies Allergies Coded Allergies Type Severity Reaction Last Updated Verified NSAIDS (Non-Steroidal Anti-Inflamma Allergy Intermediate 09/05/20 Yes Penicillins Allergy Intermediate 09/05/20 Yes cephalexin Allergy Intermediate 09/05/20 Yes iodine Allergy Intermediate 09/05/20 Yes nitrofurantoin Allergy Intermediate 09/05/20 Yes prochlorperazine Allergy Intermediate 09/05/20 Yes tramadol Allergy Intermediate 09/05/20 Yes Physical Exam Physical Exam Constitutional: Well developed, well nourished, no acute distress, non-toxic appearance. [] HENT: Normocephalic, atraumatic, bilateral external ears normal, oropharynx moist, no oral exudates, nose normal. [] Eyes: PERRLA, EOMI, conjunctiva normal, no discharge. [] Neck: Normal range of motion, no tenderness, supple, no stridor. [] Cardiovascular:Heart rate regular rhythm, no murmur [] Lungs & Thorax: Bilateral breath sounds clear to auscultation [] Abdomen: Bowel sounds normal, soft, no tenderness, no masses, no pulsatile masses. [] Skin: Warm, dry, no erythema, no rash. [] Back: No tenderness, no CVA tenderness. [] Extremities: No tenderness, no cyanosis, no clubbing, ROM intact, no edema. [] Neurologic: Alert and oriented X 3, normal motor function, normal sensory function, no focal deficits noted. [] Psychologic: Affect normal, judgement normal, mood normal. [] Current Patient Data Vital Signs Vital Signs Date Time Temp Pulse Resp B/P (MAP) Pulse Ox O2 Delivery O2 Flow Rate FiO2 10/03/20 15:05 98.1 100 26 161/98 (119) 100 EKG EKG [] Radiology/Procedures Radiology/Procedures EXAM: CT Abdomen and Pelvis without IV contrast INDICATION: Reason: midline hernia pain concerned for strangulation / Spl. Instructions: / History: TECHNIQUE: Multi-detector row CT images were acquired from the lung bases through the abdomen and pelvis without the use of IV contrast. Sagittal and coronal images were acquired from the transaxial data. All CT scans performed at this facility utilize dose optimization techniques as appropriate to the exam, including the following: Automated exposure control and adjustment of the mA and/or KV according to patient size (this includes techniques or standardized protocols for targeted exams where dose is indication/reason for exam). ORAL CONTRAST: None COMPARISON: Noncontrast abdomen pelvis CT of 09/19/2020 FINDINGS: The absence of IV contrast limits evaluation of soft tissue pathology. LOWER CHEST: Unremarkable LIVER: Unremarkable BILIARY SYSTEM: Gallbladder is surgically absent. Bile ducts are not dilated. PANCREAS: Unremarkable SPLEEN: Unremarkable ADRENALS: Unremarkable KIDNEYS & URETERS: Nonobstructive bilateral nephrolithiasis. BLADDER: Unremarkable REPRODUCTIVE ORGANS: Hysterectomy. GASTROINTESTINAL: The stomach, small bowel, and colon are unremarkable. The appendix is normal. MESENTERY/PERITONEUM/RETROPERITONEUM: Unremarkable VASCULAR: Stable IVC filter. LYMPH NODES: No adenopathy OSSEOUS & SOFT TISSUES: No acute osseous findings. Ventral abdominal hernia is redemonstrated near the midline with interval decrease in size of the fat and fluid components. There remains however a fluid component measuring 2.2 x 1.7 x 2.9 cm in transverse by AP by craniocaudal dimensions that is associated with mild surrounding soft tissue stranding. The tiny punctate focus of gas in the fluid collection which was previously evident has since resolved. IMPRESSION: Decreased but not resolution in patient's ventral abdominal wall hernia containing fat and fluid as described. Surrounding soft tissue stranding is present and could reflect changes of incarceration. No obvious bowel involvement. Electronically signed by: Siobhan Morris MD (10/03/2020 3:34 PM) [id number] Heart Score Risk Factors: Risk Factors: DM, Current or recent (<one month) smoker, HTN, HLP, family history of CAD, obesity. Risk Scores: Risk Factors: DM, Current or recent (<one month) smoker, HTN, HLP, family hi story of CAD, obesity. Course & Med Decision Making Course & Med Decision Making Pertinent Labs and Imaging studies reviewed. (See chart for details) [] Dragon Disclaimer Dragon Disclaimer This electronic medical record was generated, in whole or in part, using a voice recognition dictation system. Departure Departure: Impression: Primary Impression: Unspecified abdominal pain Disposition: DC HOME SELF CARE/HOMELESS Condition: STABLE Referrals: PCP,UNKNOWN (PCP) Patient Instructions: Abdominal Pain (Nonspecific) Additional Instructions: You have been evaluated in the Emergency Department today for abdominal pain. Your evaluation was not suggestive of any emergent condition requiring medical intervention at this time. However, some abdominal problems make take more time to appear. Therefore, it is important for you to watch for any new symptoms or worsening of your current condition. As discussed, please call your primary care physician in addition to your surgeon at [facility] who performed her central hernia repair to discuss ER visit today. Currently, there is no role for further intervention, diagnostic work-up and/or hospital admission/surgical mgmt Return to the Emergency Department if you experience worsening pain, persistent fevers greater than 100.4, recurrent vomiting, blood in vomit, blood in stool, dark tarry stool, chest pain, difficulty breathing, or any other concerning symptoms. CHETAN AVALOS DO Oct 03, 2020 15:58
== END 2020-10-03 16:13 | disposition home or self-care (01) ==
LOC: ER 14:36
DX: R10.30 Lower abdominal pain, unspecified (principal); R11.0 Nausea; I50.9 Heart failure, unspecified; F17.210 Nicotine dependence, cigarettes, uncomplicated; J44.9 Chronic obstructive pulmonary disease, unspecified; Z90.89 Acquired absence of other organs; Z90.49 Acquired absence of other specified parts of digestive tract; Z98.890 Other specified postprocedural states; Z90.710 Acquired absence of both cervix and uterus; Z88.0 Allergy status to penicillin; Z88.1 Allergy status to other antibiotic agents; Z91.040 Latex allergy status; Z88.8 Allergy status to other drugs, medicaments and biological substances
CPT/HCPCS: 74176; 99284

== ENCOUNTER 2020-10-08 12:27 | Emergency (ER) | payer SELFPAY ==
[~2020-10-08] VITALS: Ht 172.7 cm; Wt 103.9 kg
[2020-10-08 12:30] VITALS: BP 117/79
[2020-10-08] MEDS ORDERED: FAMOTIDINE 20 MG/2 ML VIAL IVP ONE (12:45)
[2020-10-08] MEDS ORDERED: ONDANSETRON PF 4 MG/2 ML VIAL. IVP ONE (12:45)
[2020-10-08] MEDS ORDERED: LIDO:MAALOX 1:1 20 ML SINGLE DOSE. PO ONE (12:45)
[2020-10-08] MEDS ORDERED: NITROGLYCERIN SUBLINGUAL 0.4 MG BOTTLE OF 25. SL PRN (12:45)
[2020-10-08] MEDS ORDERED: ASPIRIN 325 MG TABLET PO ONE (12:45)
--- NOTE | 2020-10-08 13:12 | PHYS DOC ---
Past History Past Medical History: CAD, CHF, COPD, DVT, P.U.D, Other Additional Past Medical Histor: Lupus, PE, [place] (PEE CABEZAS APRN) Past Surgical History: Appendectomy, Cholecystectomy, , Hysterectomy, Other Additional Past Surgical Histo: hernia repair, rep of perf ulcer (PEE CABEZAS APRN) Smoking: Cigarettes Alcohol Use: None Drug Use: None (PEE CABEZAS APRN) Adult General Chief Complaint Chief Complaint: CHEST PAIN HPI HPI Patient is a 38-year-old female patient presented to the ED today complaining of left-sided chest pain rated at 8 out of 10 described as sharp and constant, symptoms began this morning. Patient states the pain is radiating to the left side of her neck as well as her left shoulder. Patient denies anything exacerbating or relieving the symptoms. She states she tried Tums a couple days ago for similar pain with no relief. She also reports trying Tylenol with no relief. Patient is known to multiple ED for pain related complaints. (PEE CABEZAS APRN) Review of Systems Review of Systems Reports left-sided chest pain Constitutional: Denies fever or chills [] Eyes: Denies change in visual acuity, redness, or eye pain [] HENT: Denies nasal congestion or sore throat [] Respiratory: Denies cough or shortness of breath [] Cardiovascular: Reports left-sided chest pain GI: Denies abdominal pain, nausea, vomiting, bloody stools or diarrhea [] : Denies dysuria or hematuria [] Musculoskeletal: Denies back pain or joint pain [] Integument: Denies rash or skin lesions [] Neurologic: Denies headache, focal weakness or sensory changes [] All other systems were reviewed and found to be within normal limits, except as documented in this note. (PEE CABEZAS APRN) Current Medications Current Medications Current Medications Medications (Trade) Dose Ordered Sig/Jane Start Time Stop Time Status Last Admin Dose Admin Aspirin (Edd Aspirin) 325 mg 1X ONCE 10/08/20 12:45 10/08/20 12:54 DC Famotidine (Pepcid Vial) 20 mg 1X ONCE 10/08/20 12:45 10/08/20 12:54 DC Multi-Ingredient Mouthwash/Gargle (Gi Cocktail) 20 ml 1X ONCE 10/08/20 12:45 10/08/20 12:54 DC Nitroglycerin (Nitrostat) 0.4 mg PRN Q5MIN PRN 10/08/20 12:45 10/09/20 12:44 Ondansetron HCl (Zofran) 4 mg 1X ONCE 10/08/20 12:45 10/08/20 12:54 DC (PEE CABEZAS APRN) Allergies Allergies Allergies Coded Allergies Type Severity Reaction Last Updated Verified NSAIDS (Non-Steroidal Anti-Inflamma Allergy Intermediate 10/08/20 Yes Penicillins Allergy Intermediate 10/08/20 Yes cephalexin Allergy Intermediate 10/08/20 Yes iodine Allergy Intermediate 10/08/20 Yes nitrofurantoin Allergy Intermediate 10/08/20 Yes prochlorperazine Allergy Intermediate 10/08/20 Yes tramadol Allergy Intermediate 09/05/20 Yes (PEE CABEZAS APRN) Physical Exam Physical Exam Constitutional: Well developed, well nourished, no acute distress, non-toxic appearance. [] HENT: Normocephalic, atraumatic, bilateral external ears normal, oropharynx moist, no oral exudates, nose normal. [] Eyes: PERRLA, EOMI, conjunctiva normal, no discharge. [] Neck: Normal range of motion, no tenderness, supple, no stridor. [] Cardiovascular:Heart rate regular rhythm, no murmur [] Lungs & Thorax: Bilateral breath sounds clear to auscultation [] Abdomen: Bowel sounds normal, soft, no tenderness, no masses, no pulsatile masses. [] Skin: Warm, dry, no erythema, no rash. [] Back: No tenderness, no CVA tenderness. [] Extremities: No tenderness, no cyanosis, no clubbing, ROM intact, no edema. [] Neurologic: Alert and oriented X 3, normal motor function, normal sensory function, no focal deficits noted. [] Psychologic: Flat affect (PEE CABEZAS APRN) Current Patient Data Vital Signs Vital Signs Date Time Temp Pulse Resp B/P (MAP) Pulse Ox O2 Delivery O2 Flow Rate FiO2 10/08/20 12:30 98.3 95 16 117/79 (92) 97 Room Air (PEE CABEZAS APRN) EKG EKG [address] Avalos sinus rhythm, leftward axis, right bundle branch block heart rate 94 no STEMI [] (PEE CABEZAS APRN) Radiology/Procedures Radiology/Procedures []PROCEDURE: PORTABLE CHEST 1V Single view of the chest. 10/08/2020 12:42 PM Indication: Reason: chest pain / Spl. Instructions: / History: Comparison: Chest radiograph June 25, 2020 Findings: There is no focal consolidation. There is no pleural effusion or pneumothorax. The cardiomediastinal silhouette and pulmonary vasculature are within normal limits. No acute osseous abnormalities are seen. Impression: No evidence of acute cardiopulmonary process. Electronically signed by: Tino Salter MD (10/08/2020 1:31 PM) [id number] DICTATED AND SIGNED BY: TINO SALTER MD DATE: 10/08/20 1331 CC: EDS[facility]; PEE CABEZAS APRN; PCP,UNKNOWN ~MTH0 0 (PEE CABEZAS APRN) Heart Score HEART Score for Chest Pain: HEART Score for Chest Pain Response (Comments) Value History Slighlty/Non-Suspicious 0 ECG Normal 0 Age >45 - < 65 1 Risk Factors 1 or 2 Risk Factors 1 Troponin < Normal Limit 0 Total 2 Risk Factors: Risk Factors: DM, Current or recent (<one month) smoker, HTN, HLP, family history of CAD, obesity. Risk Scores: Risk Factors: DM, Current or recent (<one month) smoker, HTN, HLP, family history of CAD, obesity. (PEE CABEZAS APRN) Course & Med Decision Making Course & Med Decision Making Pertinent Labs and Imaging studies reviewed. (See chart for details) This is a 45-year-old female patient presented to the ED today complaining of left-sided chest pain that began panicking afebrile. Of note this patient is well-known to multiple ED's including [facility] as well as at the facility for chronic pain complaints. Patient was offered chest pain work-up with exclusion of narcotic pain medicines. Nursing staff informed me she signed out AGAINST MEDICAL ADVICE refusing care. This is a typical situation with this patient where she will sign out AMA if not given narcotic pain medicine (PEE CABEZAS APRN) Dragon Disclaimer Dragon Disclaimer This electronic medical record was generated, in whole or in part, using a voice recognition dictation system. (PEE CABEZAS APRN) Attending Co-Sign I have reviewed the [employer]'s note and plan of care. I was available for consultation as needed during the patient's visit in the emergency department. I agree with the clinical impression, plan, and disposition. Patient with full capacity wanted to leave AMA prior to completion of medical work-up. She was aware of the risks and benefits of doing so. Patient signed AMA form prior to leaving our facility (CHETAN AVALOS DO) Departure Departure: Impression: Primary Impression: Chest pain Additional Impression: Narcotic dependence Disposition: AMA/ELOPED/LWBS Condition: STABLE Referrals: PCP,UNKNOWN (PCP) Problem Qualifiers Primary Impression: Chest pain Chest pain type: unspecified Qualified Codes: R07.9 - Chest pain, unspec ified PEE [employer] Oct 08, 2020 13:12 CHETAN AVALOS DO Oct 08, 2020 16:39
[2020-10-08 13:30] LABS: BASO # 0.1 x10^3/uL (0.0-0.2); BASO % 1 % (0-3); EOS # 0.7 x10^3/uL (0.0-0.7); EOS % 7 % (0-3); HEMATOCRIT 36.3 % (36.0-47.0); HEMOGLOBIN 11.9 g/dL (12.0-15.5); LYMPH # 1.6 x10^3/uL (1.0-4.8); LYMPH % 16 % (24-48); MEAN CORPUSCULAR HEMOGLOBIN 30 pg (25-35); MEAN CORPUSCULAR HGB CONC 33 g/dL (31-37); MEAN CORPUSCULAR VOLUME 93 fL (79-100); MONO # 0.6 x10^3/uL (0.0-1.1); MONO % 6 % (0-9); NEUT % 71 % (31-73); PLATELET COUNT 621 x10^3/uL (140-400); RED BLOOD COUNT 3.92 x10^6/uL (3.50-5.40); RED CELL DISTRIBUTION WIDTH 14.8 % (11.5-14.5); WHITE BLOOD COUNT 9.9 x10^3/uL (4.0-11.0)
--- NOTE | 2020-10-08 13:34 | RAD ---
Single view of the chest. 10/08/2020 12:42 PM Indication: Reason: chest pain / Spl. Instructions: / History: Comparison: Chest radiograph June 25, 2020 Findings: There is no focal consolidation. There is no pleural effusion or pneumothorax. The cardiomediastinal silhouette and pulmonary vasculature are within normal limits. No acute osseous abnormalities are seen. Impression: No evidence of acute cardiopulmonary process. Electronically signed by: Tino Benton MD (10/08/2020 1:31 PM) [id number]
[2020-10-08 13:40] LABS: ANION GAP 15 (6-14); BLOOD UREA NITROGEN 14 mg/dL (7-20); BUN/CREATININE RATIO 16 (6-20); CALCIUM 9.7 mg/dL (8.5-10.1); CARBON DIOXIDE 24 mmol/L (21-32); CHLORIDE 101 mmol/L (98-107); CREATININE 0.9 mg/dL (0.6-1.0); GFR 67.7; GLUCOSE 115 mg/dL (70-99); POTASSIUM 3.7 mmol/L (3.5-5.1); SODIUM 140 mmol/L (136-145)
[2020-10-08 13:54] LABS: ALBUMIN 3.4 g/dL (3.4-5.0); ALBUMIN/GLOBULIN RATIO 0.8 (1.0-1.7); ALK PHOS 179 U/L (46-116); ALT (SGPT) 78 U/L (14-59); AST (SGOT) 57 U/L (15-37); MAGNESIUM 1.8 mg/dL (1.8-2.4); TOTAL BILIRUBIN 0.2 mg/dL (0.2-1.0); TOTAL PROTEIN 7.8 g/dL (6.4-8.2)
--- NOTE | 2020-10-08 15:59 | EKG ---
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
== END 2020-10-08 13:38 | disposition left against medical advice (07) ==
LOC: ER 12:27
DX: R07.89 Other chest pain (principal); F11.20 Opioid dependence, uncomplicated; I25.10 Atherosclerotic heart disease of native coronary artery without angina pectoris; I50.9 Heart failure, unspecified; J44.9 Chronic obstructive pulmonary disease, unspecified; I25.2 Old myocardial infarction; F17.210 Nicotine dependence, cigarettes, uncomplicated; Z86.718 Personal history of other venous thrombosis and embolism; Z87.11 Personal history of peptic ulcer disease; Z90.89 Acquired absence of other organs; Z90.49 Acquired absence of other specified parts of digestive tract; Z98.890 Other specified postprocedural states; Z90.710 Acquired absence of both cervix and uterus; Z86.711 Personal history of pulmonary embolism; Z88.6 Allergy status to analgesic agent; Z88.0 Allergy status to penicillin; Z88.1 Allergy status to other antibiotic agents; Z88.8 Allergy status to other drugs, medicaments and biological substances
CPT/HCPCS: 36415; 71045; 80053; 82553; 83735; 84443; 84484; 85025; 93005; 99285

== ENCOUNTER 2020-10-10 02:45 | Emergency (ER) | payer SELFPAY ==
[~2020-10-10] VITALS: Ht 172.7 cm; Wt 104.5 kg
--- NOTE | 2020-10-10 02:57 | PHYS DOC ---
Past History Past Medical History: CAD, CHF, COPD, DVT, P.U.D, Other Additional Past Medical Histor: Lupus, PE, MO Past Surgical History: Appendectomy, Cholecystectomy, , Hysterectomy, Other Additional Past Surgical Histo: hernia repair, rep of perf ulcer Smoking: Cigarettes Alcohol Use: None Drug Use: None General Adult EDM: Chief Complaint: GI PROBLEM HPI: HPI: ".. I ve got nausea and vomiting.. and diarrhea....".I got some chest pain here in my ribs.. " Just had surgery at [facility] for a hernia repair..a month ago.. Patient is a 45 year old female who presents with above hx and complaints of nausea vomiting diarrhea. Patient also complained some chest wall pain along her ribs after vomiting. Patient denies any other trauma. Patient has recently had surgical repair for a incisional hernia. Patient previous abdomen surgery was at [facility] for a ruptured or perforated ulcer. Patient's hernia repair was however at [facility] . Patient has had some nonproductive cough. Patient denies any intake bad food. No recent travel outside [facility]. No specific ill contacts. Patient does have a past medical history of coronary artery disease, CHF, COPD, DVT, peptic ulcer disease, lupus, pulmonary embolisms, myocardial infarction. Patient has had previous abdomen surgeries of appendectomy, cholecystectomy, C- sections, hysterectomy, hernia repair, and emergent perforation of a peptic ulcer. Patient does continue to smoke. Review of Systems: Review of Systems: Constitutional: Denies fever or chills Eyes: Denies change in visual acuity HENT: Denies nasal congestion or sore throat Respiratory: Denies cough or shortness of breath Cardiovascular: Complaints of some chest wall pain after vomiting GI: complaints of abdominal pain, nausea, vomiting, bloody stools or diarrhea : Denies dysuria Musculoskeletal: Denies back pain or joint pain Integument: Denies rash Neurologic: Denies headache, focal weakness or sensory changes Endocrine: Denies polyuria or polydipsia Lymphatic: Denies swollen glands Psychiatric: Denies depression or anxiety Family History: Family History: Noncontributory to presentation Current Medications: Current Meds: See nursing for home meds Allergies: Allergies: Allergies Coded Allergies Type Severity Reaction Last Updated Verified NSAIDS (Non-Steroidal Anti-Inflamma Allergy Intermediate 10/08/20 Yes Penicillins Allergy Intermediate 10/08/20 Yes cephalexin Allergy Intermediate 10/08/20 Yes iodine Allergy Intermediate 10/08/20 Yes nitrofurantoin Allergy Intermediate 10/08/20 Yes prochlorperazine Allergy Intermediate 10/08/20 Yes tramadol Allergy Intermediate 09/05/20 Yes lidocaine Allergy Unknown 10/08/20 Yes Physical Exam: PE: Constitutional: Mild to moderate distress, non-toxic appearance. [] HENT: Normocephalic, atraumatic, bilateral external ears normal, oropharynx moist, no oral exudates, nose normal. [] Eyes: PERRLA, EOMI, conjunctiva normal, no discharge. [] Neck: Normal range of motion, no tenderness, supple, no stridor. [] Cardiovascular: Tachycardia heart rate regular rhythm, no murmur [] Lungs & Thorax: Bilateral breath sounds equal apex with scattered wheezes on auscultation [] Abdomen: Bowel sounds hyperactive, soft, mild generalized tenderness, no masses, no pulsatile masses. Well-healed scars. Skin: Warm, dry, no erythema, no rash. [] Back: No tenderness, no CVA tenderness. [] Extremities: No tenderness, no cyanosis, no clubbing, ROM intact, no edema. No cording appreciated Neurologic: Alert and oriented X 3, normal motor function, normal sensory functi on, no focal deficits noted. [] Psychologic: Affect very anxious, judgement normal, mood normal. [] EKG: EKG: My interpretation of EKG shows a sinus rhythm at 97 bpm. There are some nonspecific changes right leads. There is RVH. Bimodal P waves. No findings acute STEMI with contralateral changes. [] Radiology/Procedures: Radiology/Procedures: [][place] [address] IMAGING REPORT Signed PATIENT: MANNY CARR SACCOUNT: [id number] : 1975 LOCATION: ER AGE: 45 SEX: F EXAM STATUS: PRE ER ORD. PHYSICIAN: NATY MAURER MD REASON: pain, n/v/ recent surgery hernia repair PROCEDURE: ACUTE ABDOMEN SERIES ACUTE ABDOMEN SERIES INDICATION: Reason: pain, n/v/ recent surgery hernia repair / Spl. Instructions: / History: . COMPARISON STUDY: CT abdomen 10/03/2020. FINDINGS: Lungs: Normal lung volume. No pulmonary mass or consolidation. The tracheobronchial tree and hilar structures are normal. Pleura: No pleural effusion or pneumothorax. Heart and Mediastinum: The cardiomediastinal silhouette is normal. The great vessels of the thorax are normal. Abdomen: Nonobstructive bowel gas pattern. No free air. IMPRESSION: 1. Nonobstructive bowel gas pattern. 2. No focal airspace disease. Electronically signed by: Kenneth Gutierrez MD (10/10/2020 4:20 AM) [facility] DICTATED AND SIGNED BY: KENNETH GUTIERREZ MD DATE: 10/10/20419 CC: NATY MAURER MD; PCP,UNKNOWN ~MTH0 0 Heart Score: HEART Score for Chest Pain: HEART Score for Chest Pain Response (Comments) Value History Moderately Suspicious 1 ECG Nonspecific Repolarizatio 1 Age >45 - < 65 1 Risk Factors 1 or 2 Risk Factors 1 Total 4 Risk Factors: Risk Factors: DM, Current or recent (<one month) smoker, HTN, HLP, family history of CAD, obesity. Risk Scores: Score 0 - 3: 2.5% MACE over next 6 weeks - Discharge Home Score 4 - 6: 20.3% MACE over next 6 weeks - Admit for Clinical Observation Score 7 - 10: 72.7% MACE over next 6 weeks - Early Invasive Strategies Course & Med Decision Making: Course & Med Decision Making Pertinent Labs and Imaging studies reviewed. (See chart for details) Still awaiting labs- 0530- Lab down. Still awaiting labs- 0600- Lab down Still awaiting labs - 0730- Lab down Still awaiting labs - 0800- Lab down Pt. requesting discharge. Does not want to wait any longer for labs. Pt . exhibit UCAR capacity. Aware of risk of discharge. Pt. follow up with primary. Patient take Zithromax 250 mg daily. May take Zofran 8 g up to 4 times a day for active nausea and vomiting. Must follow-up. Impression: 1. Abdomen Pain 2. Nausea, Vomiting and Diarrhea 3. Atypical Chest Wall Pain 4. Bronchitis 5. Mild leukocytosis 12.5 [] Gideon Disclaimer: Dragon Disclaimer: This electronic medical record was generated, in whole or in part, using a voice recognition dictation system. Departure Departure: Referrals: PCP,UNKNOWN (PCP) Scripts Ondansetron Hcl (ZOFRAN) 4 Mg Tablet 8 MG PO QIDPRN PRN for nv, #30 TAB Prov: NATY MAURER MD 10/10/20 Azithromycin (ZITHROMAX) 250 Mg Tablet 250 MG PO DAILY for ANTI-BIOTIC for 5 Days, #5 TAB 0 Refills Prov: NATY MAURER MD 10/10/20 Dragon Disclaimer This chart was dictated in whole or in part using Voice Recognition software in a busy, high-work load, and often noisy Emergency Department environment. It may contain unintended and wholly unrecognized errors or omissions. Dragon Disclaimer This chart was dictated in whole or in part using Voice Recognition software in a busy, high-work load, and often noisy Emergency Department environment. It may contain unintended and wholly unrecognized errors or omissions. NATY MAURER MD Oct 10, 2020 02:57
[2020-10-10] MEDS ORDERED: ONDANSETRON PF 4 MG/2 ML VIAL. IVP ONE ×2 (04:00→06:30)
[2020-10-10] MEDS ORDERED: IV RINGERS SOLUTION,LACTATED 1,000 ML IV SCH (04:00)
[2020-10-10] MEDS ORDERED: MORPHINE SULFATE 10 MG/ML SYRINGE. SQ ONE (04:00)
--- NOTE | 2020-10-10 04:23 | RAD ---
ACUTE ABDOMEN SERIES INDICATION: Reason: pain, n/v/ recent surgery hernia repair / Spl. Instructions: / History: . COMPARISON STUDY: CT abdomen 10/03/2020. FINDINGS: Lungs: Normal lung volume. No pulmonary mass or consolidation. The tracheobronchial tree and hilar structures are normal. Pleura: No pleural effusion or pneumothorax. Heart and Mediastinum: The cardiomediastinal silhouette is normal. The great vessels of the thorax are normal. Abdomen: Nonobstructive bowel gas pattern. No free air. IMPRESSION: 1. Nonobstructive bowel gas pattern. 2. No focal airspace disease. Electronically signed by: Gareth Gutierrez MD (10/10/2020 4:20 AM) [facility]
[2020-10-10 06:04] LABS: BASO # 0.1 x10^3/uL (0.0-0.2); BASO % 1 % (0-3); EOS # 0.9 x10^3/uL (0.0-0.7); EOS % 7 % (0-3); HEMATOCRIT 38.3 % (36.0-47.0); HEMOGLOBIN 12.5 g/dL (12.0-15.5); LYMPH # 2.3 x10^3/uL (1.0-4.8); LYMPH % 19 % (24-48); MEAN CORPUSCULAR HEMOGLOBIN 30 pg (25-35); MEAN CORPUSCULAR HGB CONC 33 g/dL (31-37); MEAN CORPUSCULAR VOLUME 93 fL (79-100); MONO # 0.9 x10^3/uL (0.0-1.1); MONO % 7 % (0-9); NEUT % 66 % (31-73); PLATELET COUNT 642 x10^3/uL (140-400); RED BLOOD COUNT 4.13 x10^6/uL (3.50-5.40); RED CELL DISTRIBUTION WIDTH 15.1 % (11.5-14.5); WHITE BLOOD COUNT 12.1 x10^3/uL (4.0-11.0)
[2020-10-10 06:16] LABS: BILIRUBIN,URINE NEG (NEG); CLARITY,URINE CLEAR; COLOR,URINE YELLOW; GLUCOSE,URINE NEG (NEG)
[2020-10-10 06:17] LABS: BACTERIA,URINE 0 /HPF (0-FEW); NITRITE,URINE NEG (NEG); SQUAMOUS EPITHELIAL CELL,UR FEW /LPF; UROBILINOGEN,URINE 0.2 mg/dL (0.2 mg/dL); WBC,URINE OCC /HPF (0-4)
[2020-10-10 06:49] VITALS: BP 131/85
[2020-10-10] MEDS ORDERED: ONDA4TAB7 PO (07:38)
[2020-10-10] MEDS ORDERED: AZIT250T PO (07:38)
[2020-10-10] MEDS ORDERED: ACETAMINOPHEN 500 MG TABLET PO ONE ×2 (07:45→07:49)
[2020-10-10] MEDS ORDERED: AZITHROMYCIN 250 MG TABLET. PO ONE (07:45)
[2020-10-10 07:55] LABS: AMPHETAMINE/METHAMPHETAMINE NEG (NEG); BARBITURATES NEG (NEG)
[2020-10-10 07:56] LABS: BENZODIAZEPINES NEG (NEG); CANNABINOIDS NEG (NEG); COCAINE NEG (NEG); METHADONE NEG (NEG); OPIATES POS (NEG); PHENCYCLIDINE NEG (NEG)
[2020-10-10 08:39] LABS: TOTAL PROTEIN 8.1 g/dL (6.4-8.2)
[2020-10-10 08:40] LABS: CALCIUM 10.4 mg/dL (8.5-10.1); DIRECT BILIRUBIN 0.1 mg/dL (0.0-0.2); POTASSIUM 3.9 mmol/L (3.5-5.1); TOTAL BILIRUBIN 0.2 mg/dL (0.2-1.0)
--- NOTE | 2020-10-12 08:52 | EKG ---
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
== END 2020-10-10 07:56 | disposition home or self-care (01) ==
LOC: ER 02:45
DX: R11.2 Nausea with vomiting, unspecified (principal); R19.7 Diarrhea, unspecified; R07.89 Other chest pain; J40 Bronchitis, not specified as acute or chronic; D72.829 Elevated white blood cell count, unspecified; R10.84 Generalized abdominal pain; I25.10 Atherosclerotic heart disease of native coronary artery without angina pectoris; I50.9 Heart failure, unspecified; J44.9 Chronic obstructive pulmonary disease, unspecified; F17.210 Nicotine dependence, cigarettes, uncomplicated; I25.2 Old myocardial infarction; Z86.718 Personal history of other venous thrombosis and embolism; Z87.11 Personal history of peptic ulcer disease; Z86.711 Personal history of pulmonary embolism; Z90.89 Acquired absence of other organs; Z90.49 Acquired absence of other specified parts of digestive tract; Z98.890 Other specified postprocedural states; Z90.710 Acquired absence of both cervix and uterus; Z88.6 Allergy status to analgesic agent; Z88.0 Allergy status to penicillin; Z88.1 Allergy status to other antibiotic agents; Z88.4 Allergy status to anesthetic agent; Z88.8 Allergy status to other drugs, medicaments and biological substances
CPT/HCPCS: 36415; 74022; 80048; 80076; 80307; 81001; 82550; 83690; 83735; 83880; 84443; 84484; 85025; 85379; 85610; 85730; 86705; 86709; 86803; 87340; 93005; 96361; 96372; 96374; 96376; 99285; J0456; J2270; J2405; J7120

== ENCOUNTER 2022-02-20 23:32 | Emergency (ER) | payer OTHER ==
[~2022-02-20] VITALS: Ht 172.7 cm; Wt 97.0 kg
[~2022-02-20 23:32] MED LIST changes: +AZIT250T PO; +ONDA4TAB7 PO
--- NOTE | 2022-02-21 00:55 | RAD ---
CT abdomen and pelvis without contrast PQRS statement: CT scans at this facility use dose reduction including either automated exposure cont rol, iterative reconstructions, and /or weight based radiation dosing via mA and kV modification when appropriate to reduce radiation dose to as low as reasonably achievable. HISTORY: Umbilical abdominal pain, epigastric pain. COMPARISON: CT abdomen October 03, 2020 Abdomen findings: Cholecystectomy. IVC filter. Liver, spleen, adrenal glands, pancreas unremarkable. lobulation bilateral kidneys. Left renal mid pole 2 mm calculus. No ureteral or bladder calculi or hydronephrosis. No perinephric edema. Postoperative change of partial gastrectomy with gastrojeju nostomy to below the liver to procedure. No bowel obstruction or inflammation. The appendix is absent . Right lower quadrant mildly enlarged lymph nodes in the left colic mesentery largest measuring 1.3 x 0.8 cm have increased in number and size since prior exam. No abdominal fluid. No mesenteric edema evident. Doppler calcified plaque. Pelvis findings: Hysterectomy. Ovaries absent. No bladder calculi. There is mild bladder wall edema l ikely present. Rectum and bones are unremarkable. No pelvic fluid. IMPRESSION: 1. Right lower quadrant ileocolic mesenteric borderline enlarged lymph nodes have increased in number and size since the prior exam, largest is 1.3 x 0.8 cm. These could be reactive lymph nodes or palomares es of mesenteric adenitis. No obstruction or inflammation of the GI tract evident. Follow-up CT imagi ng in 3-6 months may be of benefit to document that this adenopathy stabilizes or resolves over time to exclude the possibility of progressive pathologic adenopathy. 2. Small nonobstructing left renal calculus. 3. There may be mild urinary bladder wall edema. This could indicate cystitis. 4. Postoperative change as described. Electronically signed by: Krzysztof Loving MD (02/21/2022 12:52 AM) [facility]
[2022-02-21] MEDS ORDERED: ONDANSETRON PF 4 MG/2 ML VIAL. IVP ONE (01:15)
[2022-02-21] MEDS ORDERED: IV RINGERS SOLUTION,LACTATED 1,000 ML IV ONE (01:15)
--- NOTE | 2022-02-21 01:37 | PHYS DOC ---
Past History Past Medical History: ID, Other Additional Past Medical Histor: hernia Past Surgical History: Appendectomy, Cholecystectomy, , Hysterectomy, Other Additional Past Surgical Histo: abdominal surgery for ulcers Smoking: Cigarettes Additional Smoking Information: 1 pack/day Alcohol Use: None Drug Use: None Adult General Chief Complaint Chief Complaint: ABDOMINAL PAIN HPI HPI Patient is a 46-year-old female who presents emergency department with a chief complaint of generalized stomach pain, in between the umbilicus and epigastrium, 6 out of 10, sharp in nature and relatively constant with some nausea but no vomiting. Denies any recent travels, traumas, fevers, chest pain or shortness of breath, dysuria, hematuria or diarrhea. Review of Systems Review of Systems Review of systems otherwise unremarkable except noted in HPI Current Medications Current Medications Current Medications Medications (Trade) Dose Ordered Sig/Jane Start Time Stop Time Status Last Admin Dose Admin Fentanyl Citrate (Fentanyl 2ml Vial) 50 mcg 1X ONCE 02/21/22 01:15 02/21/22 01:16 DC 02/21/22 01:14 50 MCG Lactated Ringer's 1,000 ml @ 1,000 mls/hr 1X ONCE 02/21/22 01:15 02/21/22 02:14 02/21/22 01:11 1,000 MLS/HR Ondansetron HCl (Zofran) 4 mg 1X ONCE 02/21/22 01:15 02/21/22 01:16 DC 02/21/22 01:14 4 MG Allergies Allergies Allergies Coded Allergies Type Severity Reaction Last Updated Verified NSAIDS (Non-Steroidal Anti-Inflamma Allergy Intermediate 10/08/20 Yes Penicillins Allergy Intermediate 10/08/20 Yes cephalexin Allergy Intermediate 10/08/20 Yes iodine Allergy Intermediate 10/08/20 Yes nitrofurantoin Allergy Intermediate 10/08/20 Yes prochlorperazine Allergy Intermediate 10/08/20 Yes tramadol Allergy Intermediate 09/05/20 Yes lidocaine Allergy Unknown 10/08/20 Yes Physical Exam Physical Exam Constitutional: Well developed, well nourished, no acute distress, non-toxic a ppearance. [] HENT: Normocephalic, atraumatic, bilateral external ears normal, oropharynx moist, no oral exudates, nose normal. [] Eyes: PERRLA, EOMI, conjunctiva normal, no discharge. [] Neck: Normal range of motion, no tenderness, supple, no stridor. [] Cardiovascular:Heart rate regular rhythm, no murmur [] Lungs & Thorax: Bilateral breath sounds clear to auscultation [] Abdomen:soft, no tenderness, no masses, no pulsatile masses. [] Skin: Warm, dry, no erythema, no rash. [] Back: no CVA tenderness. [] Extremities: No tenderness, no cyanosis, no clubbing, ROM intact, no edema. [] Neurologic: Alert and oriented X 3, normal motor function, normal sensory function, no focal deficits noted. [] Psychologic: Affect normal, judgement normal, mood normal. [] Current Patient Data Vital Signs Vital Signs Date Time Temp Pulse Resp B/P (MAP) Pulse Ox O2 Delivery O2 Flow Rate FiO2 02/21/22 01:15 84 18 140/73 (95) 99 Room Air 02/20/22 23:44 98.0 EKG EKG [] Radiology/Procedures Radiology/Procedures [] Heart Score C/O Chest Pain: No Risk Factors: Risk Factors: DM, Current or recent (<one month) smoker, HTN, HLP, family history of CAD, obesity. Risk Scores: Risk Factors: DM, Current or recent (<one month) smoker, HTN, HLP, family history of CAD, obesity. Course & Med Decision Making Course & Med Decision Making Patient is a 46-year-old female who presents with abdominal pain and nausea [] Vital signs initially notable for tachycardia and hypertension which resolved in the ED. Given medicines for pain and nausea CT with probable mesenteric adenitis. Patient unable to take NSAIDs however though she is allergic. Started on alternative pain medication and nausea medicine. Discussed symptom management at home. Discussed diet and hydration over the next couple of days. Advised to follow-up in the morning with primary care physician to update on ED visit. Gave return precautions to the ED. Patient grateful, verbalized understanding and agreed with plan of discharge. Dragon Disclaimer Dragon Disclaimer This electronic medical record was generated, in whole or in part, using a voice recognition dictation system. Departure Departure: Impression: Primary Impression: Mesenteric adenitis Disposition: HOME / SELF CARE / HOMELESS Condition: STABLE Referrals: PCP,UNKNOWN (PCP) NAZ MOBLEY Patient Instructions: Mesenteric Adenitis Additional Instructions: Thank you coming into the emergency department tonight and allowing us to take care of you. Please read the attached information carefully to go over things we discussed. Please continue Tylenol and Benadryl as we discussed. Please stay well-hydrated. Please use your prescription pain and nausea medicine as needed. Please follow-up tomorrow with your primary care physician update on your ED visit and set up a follow-up as soon as you can. Please come back with new or concerning symptoms as discussed. MARTHA CEJA MD Feb 21, 2022 01:37
[2022-02-21] MEDS ORDERED: ACETAMINOPHEN/CODEINE 300/30MG 4TABLET STARTPACK. PO ONE (01:45)
[2022-02-21] MEDS ORDERED: ONDANSETRON 4MG ODT 4TABLET STARTPACK. PO ONE (01:45)
[2022-02-21] MEDS ORDERED: oxyCODONE/APAP 5/325 1 TAB TABLET PO ONE (01:45)
[2022-02-21 01:50] VITALS: BP 138/70
== END 2022-02-21 01:52 | disposition home or self-care (01) ==
LOC: ER 23:32
DX: I88.0 Nonspecific mesenteric lymphadenitis (principal); I25.2 Old myocardial infarction; F17.210 Nicotine dependence, cigarettes, uncomplicated; Z90.89 Acquired absence of other organs; Z90.49 Acquired absence of other specified parts of digestive tract; Z98.890 Other specified postprocedural states; Z90.710 Acquired absence of both cervix and uterus; Z88.6 Allergy status to analgesic agent; Z88.0 Allergy status to penicillin; Z88.1 Allergy status to other antibiotic agents; Z88.4 Allergy status to anesthetic agent; Z88.8 Allergy status to other drugs, medicaments and biological substances
CPT/HCPCS: 74176; 96361; 96374; 96375; 99284; J2405; J3010; J7120; Q0162

== ENCOUNTER 2022-02-28 19:29 | Emergency (ER) | payer OTHER ==
[~2022-02-28] VITALS: Ht 172.7 cm; Wt 95.8 kg
--- NOTE | 2022-02-28 19:36 | PHYS DOC ---
Past History Past Medical History: MD, Other Additional Past Medical Histor: hernia Past Surgical History: Appendectomy, Cholecystectomy, , Hysterectomy, Other Additional Past Surgical Histo: abdominal surgery for ulcers Smoking: Cigarettes Alcohol Use: None Drug Use: None Adult General HPI HPI Patient is a 46-year-old female who presents to the emergency department with a chief complaint of flank pain, bilaterally, more on the left than the right that is been going on over the course of the day. Denies any recent travels, traumas, illness, fevers, chest pain, dysuria, hematuria, blood in the stool or diarrhea. States she is a smoker, with a [id number] history and probably has COPD. Denies any known ill contacts. States she is eating and drinking normally for her. States he is making urine and stool normally for her. Review of Systems Review of Systems Review of systems otherwise unremarkable except noted in HPI Allergies Allergies Allergies Coded Allergies Type Severity Reaction Last Updated Verified NSAIDS (Non-Steroidal Anti-Inflamma Allergy Intermediate 10/08/20 Yes Penicillins Allergy Intermediate 10/08/20 Yes cephalexin Allergy Intermediate 10/08/20 Yes iodine Allergy Intermediate 10/08/20 Yes nitrofurantoin Allergy Intermediate 10/08/20 Yes prochlorperazine Allergy Intermediate 10/08/20 Yes tramadol Allergy Intermediate 09/05/20 Yes lidocaine Allergy Unknown 10/08/20 Yes Physical Exam Physical Exam Constitutional: Well developed, well nourished, no acute distress, non-toxic brian earance. [] HENT: Normocephalic, atraumatic, oropharynx moist, no oral exudates, nose normal. [] Eyes:conjunctiva normal, no discharge. [] Neck: Normal range of motion, no tenderness, supple, no stridor. [] Cardiovascular:Heart rate regular rhythm, no murmur [] Lungs & Thorax: Mild bilateral upper respiratory congestion/rhonchi with no wheeze Abdomen: soft, no tenderness, no masses, no pulsatile masses. [] Skin: Warm, dry, no erythema, no rash. [] Back: No tenderness, no CVA tenderness. [] Extremities: No tenderness, no cyanosis, no clubbing, ROM intact, no edema. [] Neurologic: Alert and oriented X 3, normal motor function, normal sensory function, no focal deficits noted. [] Psychologic: Affect normal, judgement normal, mood normal. [] EKG EKG [] Radiology/Procedures Radiology/Procedures [] Heart Score C/O Chest Pain: No Risk Factors: Risk Factors: DM, Current or recent (<one month) smoker, HTN, HLP, family history of CAD, obesity. Risk Scores: Risk Factors: DM, Current or recent (<one month) smoker, HTN, HLP, family history of CAD, obesity. Course & Med Decision Making Course & Med Decision Making Patient is a 46-year-old female who presents with flank pain Vital signs nonconcerning. Physical exam noted above. Given medicines for pain. CT with no abdominal findings but does have patchy airspace disease in the left lung base. Given COPD, patient started on antibiotics given steroids and albuterol inhaler Discussed all findings with patient. Discussed symptom management at home. Advised to follow-up in the morning with primary care physician. Gave return precautions to the ED Patient grateful, verbalized understanding and agreed with plan of discharge. [] Dragon Disclaimer Dragon Disclaimer This electronic medical record was generated, in whole or in part, using a voice recognition dictation system. Departure Departure: Impression: Primary Impression: Pneumonia Disposition: HOME / SELF CARE / HOMELESS Condition: STABLE Referrals: PCP,HARDEEP (PCP) NAZ MOBLEY Patient Instructions: Chronic Obstructive Pulmonary Disease, Pneumonia, Adult Additional Instructions: Thank you for coming into the emergency department tonight and allowing us to take care of you. Please read the attached information carefully to go over things we discussed. Please take your antibiotics as prescribed and until gone. Continue to take Tylenol 1000 mg every 8 hours and Benadryl 50 mg every 6 hours as needed. Please follow-up in the morning with your primary care physician update on your ED visit and set up a follow-up to discuss smoking cessation, COPD and your ED visit. Please come back with new or concerning symptoms as discussed. Scripts Doxycycline Hyclate (DOXYCYCLINE HYCLATE) 100 Mg Capsule 1 CAP PO BID for PNA, #13 CAP Prov: MARTHA CEJA MD 02/28/22 MARTHA CEJA MD Feb 28, 2022 19:36
[2022-02-28] MEDS ORDERED: ACETAMINOPHEN 500 MG TABLET PO ONE (19:45)
[2022-02-28] MEDS: diphenhydrAMINE HCL 25 MG CAPSULE PO ONE (20:15)
--- NOTE | 2022-02-28 20:18 | RAD ---
Exam: CT of abdomen and pelvis without contrast INDICATION: Flank pain TECHNIQUE: Sequential axial images through the abdomen and pelvis obtained without IV contrast. Sagit cristina and coronal reformatted images were reconstructed from the axial data and reviewed. Exposure: One or more of the following in the visualized dose reduction techniques were utilized for this examination: 1. Automated exposure control 2. Adjustment of the MA and/or KV according to patient size 3. Use of iterative of reconstructive technique Comparisons: 02/21/2022 FINDINGS: Heart size is normal. No pericardial effusion. Patchy airspace disease at the medial left lung base. No pleural effusion. Evaluation of solid organs limited secondary to noncontrast technique. Liver, spleen, pancreas and adrenals are unremarkable. Gallbladder is absent. No perinephric inflammation or hydronephrosis. No renal or ureteral calculi are identified. Bladder is partially distended and not well evaluated. Uterus is absent. No abnormal adnexal mass. Moderate amount of stool is noted in the colon. Appendix is nonidentified. No free intra-abdominal ai r or fluid. No obstruction. Abdominal aorta has normal course and caliber. No enlarged intra-abdominal lymph nodes are identified. No suspicious osseous lesions or acute fractures. IMPRESSION: 1. No acute process identified within the abdomen or pelvis. 2. Moderate amount stool noted in the colon, correlate for constipation. 3. Patchy airspace disease at the left lung base may be infectious or inflammatory in etiology. Electronically signed by: Philip Lopez MD (02/28/2022 8:15 PM) [facility]
[2022-02-28 20:35] LABS: BACTERIA,URINE FEW /HPF (0-FEW); CLARITY,URINE CLEAR; COLOR,URINE YELLOW; GLUCOSE,URINE NEG (NEG); NITRITE,URINE NEG (NEG); RBC,URINE 0 /HPF (0-2); SQUAMOUS EPITHELIAL CELL,UR FEW /LPF; UROBILINOGEN,URINE 0.2 mg/dL (0.2 mg/dL)
[2022-02-28] MEDS ORDERED: DOXY100C3 PO ×3 (20:44→21:05)
[2022-02-28] MEDS: DOXYCYCLINE HYCLATE 100 MG TABLET PO ONE (20:46)
[2022-02-28] MEDS: DEXAMETHASONE 4 MG TABLET PO ONE (20:47)
[2022-02-28] MEDS: ALBUTEROL SULFATE 8GM INHALER. INH ONE (20:49)
[2022-02-28 20:50] VITALS: BP 132/65
[2022-02-28] MEDS: oxyCODONE/APAP 5/325 1 TAB TABLET PO ONE (20:51)
== END 2022-02-28 20:55 | disposition home or self-care (01) ==
LOC: ER 19:29
DX: J18.9 Pneumonia, unspecified organism (principal); I25.2 Old myocardial infarction; F17.210 Nicotine dependence, cigarettes, uncomplicated; Z90.89 Acquired absence of other organs; Z90.49 Acquired absence of other specified parts of digestive tract; Z98.890 Other specified postprocedural states; Z90.710 Acquired absence of both cervix and uterus; Z88.6 Allergy status to analgesic agent; Z88.0 Allergy status to penicillin; Z88.4 Allergy status to anesthetic agent; Z88.8 Allergy status to other drugs, medicaments and biological substances
CPT/HCPCS: 74176; 81001; 81025; 87086; 94640; 99284; J8540; Q0163; 94664

== ENCOUNTER 2022-03-02 16:29 | Emergency (ER) | payer OTHER ==
[~2022-03-02] VITALS: Ht 172.7 cm; Wt 95.8 kg
[2022-03-02 16:29] VITALS: BP 133/57
[~2022-03-02 16:29] MED LIST changes: +DOXY100C3 PO
--- NOTE | 2022-03-02 17:30 | PHYS DOC ---
Past History Past Medical History: DC, Other Additional Past Medical Histor: hernia, LUPUS (ABIMAEL DURANT APRN) Past Surgical History: Appendectomy, Cholecystectomy, , Hysterectomy, Other Additional Past Surgical Histo: abdominal surgery for ulcers (ABIMAEL DURANT APRN) Smoking: Cigarettes Alcohol Use: None Drug Use: None (ABIMAEL DURANT APRN) General Adult EDM: Chief Complaint: COUGH HPI: HPI: Patient is a 46-year-old female presents with a cough. Patient states she was seen here earlier in the week and prescribed an antibiotic and given an inhaler but symptoms have not improved. Patient states her cough is keeping her up at night. Denies fever. Denies shortness of breath. (ABIMAEL DURANT APRN) Review of Systems: Review of Systems: ROS At least 10 ROS systems have been reviewed and are negative except as documented in the HPI. General: Negative except as outlined in HPI above. Skin: Negative except as outlined in HPI above. HEENT: Negative except as outlined in HPI above. Neck: Negative except as outlined in HPI above. Respiratory: Negative except as outlined in HPI above.. Cardiovascular: Negative except as outlined in HPI above. Abdomen: Negative except as outlined in HPI above. : Negative except as outlined in HPI above. Back/MSK: Negative except as outlined in HPI above. Neuro: Negative except as outlined in HPI above. Psych: Negative except as outlined in HPI above. (ABIMAEL DURANT APRN) Allergies: Allergies: Allergies Coded Allergies Type Severity Reaction Last Updated Verified NSAIDS (Non-Steroidal Anti-Inflamma Allergy Intermediate 10/08/20 Yes Penicillins Allergy Intermediate 10/08/20 Yes cephalexin Allergy Intermediate 10/08/20 Yes iodine Allergy Intermediate 10/08/20 Yes nitrofurantoin Allergy Intermediate 10/08/20 Yes prochlorperazine Allergy Intermediate 10/08/20 Yes tramadol Allergy Intermediate 09/05/20 Yes lidocaine Allergy Unknown 10/08/20 Yes (ABIMAEL DURANT APRN) Physical Exam: PE: Constitutional: Well developed, well nourished, no acute distress, non-toxic appearance. [] HENT: Normocephalic, atraumatic, bilateral external ears normal, oropharynx moist, no oral exudates, nose normal. [] Eyes: PERRLA, EOMI, conjunctiva normal, no discharge. [] Neck: Normal range of motion, no tenderness, supple, no stridor. [] Cardiovascular:Heart rate regular rhythm, no murmur [] Lungs & Thorax: Bilateral breath sounds clear to auscultation, no wheezing Abdomen: Bowel sounds normal, soft, no tenderness, no masses, no pulsatile masses. [] Skin: Warm, dry, no erythema, no rash. [] Back: No tenderness, no CVA tenderness. [] Extremities: No tenderness, no cyanosis, no clubbing, ROM intact, no edema. [] Neurologic: Alert and oriented X 3, normal motor function, normal sensory function, no focal deficits noted. [] Psychologic: Affect normal, judgement normal, mood normal. [] (ABIMAEL DURANT APRN) EKG: EKG: [] (ABIMAEL DURANT APRN) Radiology/Procedures: Radiology/Procedures: []EXAMINATION: Chest radiograph. VIEWS: Frontal and lateral views the chest COMPARISON: 06/25/2020 INDICATION:46 years, Female, cough. FINDINGS: Normal cardiomediastinal silhouette. No focal consolidation. No pleural effusion or pneumothorax. No acute osseous process. IMPRESSION: No acute cardiopulmonary process. Electronically signed by: Binu Lea DO (03/02/2022 5:26 PM) [facility] (ABIMAEL DURANT APRN) Heart Score: C/O Chest Pain: No Risk Factors: Risk Factors: DM, Current or recent (<one month) smoker, HTN, HLP, family history of CAD, obesity. Risk Scores: Score 0 - 3: 2.5% MACE over next 6 weeks - Discharge Home Score 4 - 6: 20.3% MACE over next 6 weeks - Admit for Clinical Observation Score 7 - 10: 72.7% MACE over next 6 weeks - Early Invasive Strategies (ABIMAEL DURANT APRN) Course & Med Decision Making: Course & Med Decision Making Pertinent Labs and Imaging studies reviewed. (See chart for details) [] 46-year-old male presents with a cough. Patient was seen earlier in the week and prescribed an antibiotic. Patient states that her cough is keeping her up at night. Work-up in ER consisted of chest x-ray. Chest x-ray is unremarkable. Advised patient to continue taking her antibiotic and using an inhaler as needed. Try to sleep with pillows underneath her to keep her propped up in decrease coughing at night. Patient was prescribed cough syrup with codeine to help with symptoms. Ibuprofen for pain. Follow-up with PCP if symptoms do not improve. (ABIMAEL DURANT APRN) Gideon Disclaimer: Gideon Disclaimer: This electronic medical record was generated, in whole or in part, using a voice recognition dictation system. (ABIMAEL DURANT APRN) Attending Co-Sign The patient was seen and interviewed as well as examined at the bedside. The chart was reviewed. The case was discussed. Agree with the plan of care. (FILIBERTO MORALES DO) Departure Departure: Impression: Primary Impression: Cough Disposition: HOME / SELF CARE / HOMELESS Condition: STABLE Referrals: PCP,NO (PCP) Patient Instructions: Cough, Adult, [id number] Additional Instructions: You are seen in the emergency room for a cough. I am prescribing you medication to help with your symptoms. Sleep with pillows underneath you to help prevent coughing at night. Ibuprofen and Tylenol for pain. EMERGENCY DEPARTMENT GENERAL DISCHARGE INSTRUCTIONS Thank you for coming to [facility] (ED) today and trusting us with you care. We trust that you had a positivie experience in our Emergency Department. If you wish to speak to the department management, you may call the director at [phone]. YOUR FOLLOW UP INSTRUCTIONS ARE FOLLOWS: 1. Do you have a private Doctor? If you do not have a private doctor, please ask for a resource list of physicians or clinics that may be able to assist you with follow up care. 2. The Emergency Physician has interpreted your x-rays. The X-Ray specialist will also review them. If there is a change in the findings, you will be notified in 48 h ours when at all possible. 3. A lab test or culture has been done, your results will be reviewed and you will be notified if you need a change in treatment. ADDITIONAL INSTRUCTIONS AND INFORMATION: 1. Your care today has been supervised by a physician who is specially trained in emergency care. Many problems require more than one evaluation for a complete diagnosis and treatment. We recommend that you schedule your follow up appointment as recommended to ensure complete treatment of you illness or injury. If you are unable to obtain follow up care and continue to have a problem, or if your condition worsens, we recommend that you return to the ED. 2. We are not able to safely determine your condition over the phone nor are we able to give sound medical advice over the phone. For these safety reasons, if you call for medical advice we will ask you to come to the ED for further evaluation. 3. If you have any questions regarding these discharge instructions please call the ED at [phone]. SAFETY INFORMATION: In the interest of safety, wellness, and injury prevention; we encourage you to wear your sealbelt, if you smoke; quite smoking, and we encourage family to use a protective helmet for bicycling and other sporting events that present an increased risk for head injury. IF YOUR SYMPTOMS WORSEN OR NEW SYMPTOMS DEVELOP, OR YOU HAVE CONCERNS ABOUT YOUR CONDITION; OR IF YOUR CONDITION WORSENS WHILE YOU ARE WAITING FOR YOUR FOLLOW UP APPOINTMENT; EITHER CONTACT YOUR PRIMARY CARE DOCTOR, THE PHYSICIAN WHOSE NAME AND NUMBER YOU WERE GIVEN, OR RETURN TO THE ED IMMEDIATELY. Scripts Guaifenesin/Codeine Phosphate (Codeine-Guaifen 10-100 mg/5 ml) 120 Ml Liquid 10-May ML PO PRN Q4HRS PRN for cough and congestion MDD 60 Milliliter(s) for 4 Days, #240 ML 0 Refills Prov: ABIMAEL DURANT APRN 03/02/22 ABIMAEL DURANT APRN Mar 02, 2022 17:30 FILIBERTO MORALES DO Mar 03, 2022 06:17
[2022-03-02] MEDS ORDERED: GUAI120L35 PO (17:32)
== END 2022-03-02 17:40 | disposition home or self-care (01) ==
LOC: ER 16:29
DX: R05.9 Cough, unspecified (principal); I25.2 Old myocardial infarction; F17.210 Nicotine dependence, cigarettes, uncomplicated; Z88.6 Allergy status to analgesic agent; Z88.0 Allergy status to penicillin; Z88.1 Allergy status to other antibiotic agents; Z88.4 Allergy status to anesthetic agent; Z88.8 Allergy status to other drugs, medicaments and biological substances
CPT/HCPCS: 71046; 99283

== ENCOUNTER 2022-04-03 04:20 | Emergency (ER) | payer OTHER ==
[~2022-04-03] VITALS: Ht 172.7 cm; Wt 97.5 kg
[~2022-04-03 04:20] MED LIST changes: +GUAI120L35 PO
[2022-04-03 04:30] VITALS: BP 132/57
[2022-04-03] MEDS ORDERED: LEVE500T57 PO (04:31)
[2022-04-03] MEDS ORDERED: FURO-68 PO (04:31)
[2022-04-03] MEDS ORDERED: SUCR1ORA5 PO (04:31)
[2022-04-03] MEDS ORDERED: PANT40TA3 PO (04:31)
--- NOTE | 2022-04-03 04:41 | PHYS DOC ---
Past History Past Medical History: ID, Other Additional Past Medical Histor: hernia, LUPUS Past Surgical History: Appendectomy, Cholecystectomy, , Hysterectomy, Other Additional Past Surgical Histo: abdominal surgery for ulcers Smoking: Cigarettes Alcohol Use: None Drug Use: None Adult General Chief Complaint Chief Complaint: FLANK PAIN HPI HPI Patient is a 46-year-old female who presents with flank pain Review of Systems Review of Systems Review of systems otherwise unremarkable except noted in HPI Allergies Allergies Allergies Coded Allergies Type Severity Reaction Last Updated Verified NSAIDS (Non-Steroidal Anti-Inflamma Allergy Intermediate 10/08/20 Yes Penicillins Allergy Intermediate 10/08/20 Yes cephalexin Allergy Intermediate 10/08/20 Yes iodine Allergy Intermediate 10/08/20 Yes nitrofurantoin Allergy Intermediate 10/08/20 Yes prochlorperazine Allergy Intermediate 10/08/20 Yes tramadol Allergy Intermediate 09/05/20 Yes lidocaine Allergy Unknown 10/08/20 Yes Physical Exam Physical Exam Constitutional: Well developed, well nourished, no acute distress, non-toxic appearance. [] HENT: Normocephalic, atraumatic, bilateral external ears normal, oropharynx moist, no oral exudates, nose normal. [] Eyes: conjunctiva normal, no discharge. [] Neck: Normal range of motion, no tenderness, supple, no stridor. [] Cardiovascular:Heart rate regular rhythm, no murmur [] Lungs & Thorax: No respiratory distress or abnormal breath sounds Abdomen: soft, no tenderness, no masses, no pulsatile masses. [] Skin: Warm, dry, no erythema, no rash. [] Back: No tenderness, no CVA tenderness. [] Extremities: No tenderness, no cyanosis, no clubbing, ROM intact, no edema. [] Neurologic: Alert and oriented X 3, normal motor function, normal sensory function, able to sit, stand and walk without issue, no focal deficits noted. [] Psychologic: Affect normal, judgement normal, mood normal. [] EKG EKG [] Radiology/Procedures Radiology/Procedures [] Heart Score C/O Chest Pain: No Risk Factors: Risk Factors: DM, Current or recent (<one month) smoker, HTN, HLP, family history of CAD, obesity. Risk Scores: Risk Factors: DM, Current or recent (<one month) smoker, HTN, HLP, family history of CAD, obesity. Course & Med Decision Making Course & Med Decision Making Patient is a 46-year-old female who presents with flank pain Vital signs nonconcerning. Physical exam noted above. Given medicines for pain Gideon Disclaimer Gideon Disclaimer This electronic medical record was generated, in whole or in part, using a voice recognition dictation system. Departure Departure: Impression: Primary Impression: Mesenteric adenitis Additional Impressions: Constipation Urinary tract infection Disposition: HOME / SELF CARE / HOMELESS Condition: STABLE Referrals: PCP,NO (PCP) NAZ MOBLEY Patient Instructions: Constipation, Adult, Flank Pain, Urinary Tract Infection Additional Instructions: Thank you for coming into the emergency department tonight and allowing us to take care of you. Please read the attached information carefully to go over things we discussed. Please be sure to eat and drink normally. Please follow- up with your primary care physician when you can to set up a follow-up visit to discuss her ED visit. Please take your antibiotics as prescribed and until gone. As discussed changes to your diet and hydration regimen to help with symptom control especially over the next several days to have appropriate bowel movements. Please continue 1000 milligrams of Tylenol every 8 hours and 50 mg of Benadryl every 6 hours. Please come back with new or concerning symptoms as discussed. Scripts Metoclopramide Hcl (REGLAN) 10 Mg Tablet 1 TAB PO BID for Nausea for 7 Days, #14 TAB 0 Refills before food and bedtime Prov: MARTHA CEJA MD 04/03/22 Ciprofloxacin (CIPRO) 250 Mg/5 Ml Hoa.mc.rec 1 TAB PO BID for UTI for 2 Days, #4 TAB 0 Refills Prov: MARTHA CEJA MD 04/03/22 Problem Qualifiers MARTHA CEJA MD April 03, 2022 04:41
[2022-04-03] MEDS ORDERED: ACETAMINOPHEN 500 MG TABLET PO ONE (04:45)
[2022-04-03] MEDS ORDERED: diphenhydrAMINE 50 MG/ML VIAL IVP ONE (04:45)
[2022-04-03] MEDS ORDERED: diphenhydrAMINE HCL 25 MG CAPSULE PO ONE ×2 (04:51→05:00)
--- NOTE | 2022-04-03 04:57 | RAD ---
Abdominal and Pelvis CT, Without Contrast: History: Reason: flank pain / Spl. Instructions: / History: Comparison: February 28, 2022. Procedure: Axial images are obtained of the abdomen and pelvis, without IV or oral contrast. Oral Contrast: No Findings: Evaluation of solid organs is limited without contrast. There is an IVC filter again seen. The gallbladder has been removed. The appendix is not well seen. T here is a suture line in the stomach suggesting gastric jejunal bypass. There is multiple mildly enla rged mesenteric lymph nodes in the right lower quadrant. There is air and stool scattered throughout the colon. Liver: Normal. Spleen: Normal. Pancreas: Normal. Adrenal Glands: Normal. Kidneys: Normal. There is no free air or free fluid. There is no lymphadenopathy. The urinary bladder appears normal. There is no pericolonic inflammation identified. Impression: 1. Possible mild constipation. 2. Prior gastrojejunostomy. 3. Mild mesenteric lymphadenopathy on the right was seen previously and could be lymphadenitis. 4. Stable appearance of the abdomen and pelvis. End impression PQRS Compliance Statement: One or more of the following individualized dose reduction techniques were utilized for this examinat ion: 1. Automated exposure control 2. Adjustment of the mA and/or kV according to patient size 3. Use of iterative reconstruction technique Electronically signed by: Je Alfonso III, MD (04/03/2022 4:54 AM) [facility]
[2022-04-03] MEDS ORDERED: diphenhydrAMINE 50 MG/ML VIAL IM ONE (05:00)
[2022-04-03 05:05] LABS: CLARITY,URINE HAZY; COLOR,URINE YELLOW; GLUCOSE,URINE NEG (NEG); NITRITE,URINE NEG (NEG); RBC,URINE 0 /HPF (0-2); UROBILINOGEN,URINE 0.2 mg/dL (0.2 mg/dL); WBC,URINE >40 /HPF (0-4)
[2022-04-03] MEDS ORDERED: MAGNESIUM CITRATE 296 ML SOLUTION. ONE (05:05)
[2022-04-03] MEDS ORDERED: BISACODYL 10 MG SUPP.RECT ONE (05:05)
[2022-04-03 05:06] LABS: BACTERIA,URINE FEW /HPF (0-FEW); SQUAMOUS EPITHELIAL CELL,UR FEW /LPF
[2022-04-03] MEDS ORDERED: METOCLOPRAMIDE 10 MG TABLET ONE (05:06)
[2022-04-03] MEDS ORDERED: CIPR250S2 PO (05:13)
[2022-04-03] MEDS ORDERED: METO10TA81 PO (05:13)
[2022-04-03] MEDS ORDERED: BISACODYL 10 MG SUPP.RECT PR ONE (05:15)
[2022-04-03] MEDS ORDERED: METOCLOPRAMIDE 10 MG TABLET PO ONE (05:15)
[2022-04-03] MEDS ORDERED: CIPROFLOXACIN HCL 500 MG TABLET PO ONE (05:15)
== END 2022-04-03 05:18 | disposition home or self-care (01) ==
LOC: ER 04:20
DX: I88.0 Nonspecific mesenteric lymphadenitis (principal); N39.0 Urinary tract infection, site not specified; K59.00 Constipation, unspecified; I25.2 Old myocardial infarction; F17.210 Nicotine dependence, cigarettes, uncomplicated; Z90.89 Acquired absence of other organs; Z90.49 Acquired absence of other specified parts of digestive tract; Z98.890 Other specified postprocedural states; Z90.710 Acquired absence of both cervix and uterus; Z88.6 Allergy status to analgesic agent; Z88.0 Allergy status to penicillin; Z88.1 Allergy status to other antibiotic agents; Z88.4 Allergy status to anesthetic agent; Z88.8 Allergy status to other drugs, medicaments and biological substances
CPT/HCPCS: 74176; 81001; 87086; 99284; Q0163